=== PATIENT | male | born 1955 | race Caucasian/White ===

== ENCOUNTER → 2018-05-02 16:39 | Outpatient (CLI) | payer OTHER ==
[2013-08-12 13:16] VITALS: BMI 38.2
[~2018-05-02 16:39] MED LIST: ASPIRIN81 MG PO; BETAPACE 80 MG80 MG PO; COLACE100 MG PO; COUMADIN5 MG PO; COZAAR100 MG; LASIX20 MG PO; MICRO-K10 MEQ PO; MORPHINE IMMEDI15 MG PO; NEURONTIN 300300 MG PO; SYMBICORT 16010.2 GM; ZYRTEC10 MG
[2018-05-02 17:16] LABS: ANION GAP 12.6 mmol/L (8-16); CARBON DIOXIDE 31.5 mmol/L (21.0-32.0); CREATININE - SERUM 1.3 mg/dL (0.6-1.3); POTASSIUM - SERUM 4.1 mmol/L (3.5-5.1)
== END | disposition home or self-care (01) ==
LOC: D.LABREF 16:39
PROVIDERS: Nurse Practitioner
DX: I10 Essential (primary) hypertension (principal)

== ENCOUNTER 2018-07-28 12:51 | Observation (INO) | payer OTHER ==
[~2018-07-28] VITALS: Ht 177.8 cm; Wt 145.3 kg
--- NOTE | ~2018-07-28 | DS ---
PATIENT:MEHUL FRAIRE :55 MEDICAL RECORD: [id number] DISCHARGE SUMMARY ADMISSION DATE: 07/28/18 DISCHARGE DATE: 07/30/18 DATE OF ADMISSION: 07/28/2018. DATE OF DISCHARGE: 07/30/2018. DIAGNOSES: 1. Nonischemic cardiomyopathy. 2. Atrial fibrillation. 3. History of transient ischemic attack. BRIEF HISTORY AND HOSPITAL COURSE: Admitted with dyspnea, chest tightness, concerning for angina as well as positive enzymes, found to have a nonischemic cardiomyopathy on angiography. Started on a beta blockade as well as aldosterone inhibition, was discharged home to follow up in the office. We will need to repeat echo in 90 days to see if device therapy is indicated. TRANSINT:[id number] Voice Confirmation ID: [id number] DOCUMENT ID: [id number] LORY LEWIS MD CC: [id number] DICTATION DATE: 07/30/1842 SUPERVISOR GARMENT MANUFACTURING: 07/31/18 0019 DIS IN 07/30/18 [place] [id number] [place] [id number]
--- NOTE | ~2018-07-28 | CN ---
PATIENT NAME:MEHLU FRAIRE MEDICAL RECORD: [id number] : 55 LOCATION:D. D.2132 ADMIT DATE: 07/28/18 ACCOUNT: [id number] CONSULTING PHYSICIAN: LORY LEWIS MD REFERRING PHYSICIAN: LUZMA SMITH MD DATE OF CONSULTATION: 07/29/2018 HISTORY OF PRESENT ILLNESS: A 62-year-old gentleman with known history of coronary artery disease. He has a history of cerebrovascular disease status post TIA as well as paroxysmal atrial fibrillation, admitted with angina. He was actually working fairly heavily in his RV, had chest tightness and pressure radiating to jaw and teeth. Cardiac enzymes are elevated. ECG without acute change. We are asked to see him concerning his cardiovascular status. PAST MEDICAL HISTORY: Includes: 1. History of hypertension. 2. Hyperlipidemia. 3. Paroxysmal atrial fibrillation. 4. Cerebrovascular disease status post CVA. ALLERGIES: ERYTHROMYCIN. MEDICATIONS: Typically include warfarin per scale, Zyrtec 10 every day, Cozaar 100 every day, sotalol 40 b.i.d., Neurontin 300 b.i.d., Lyrica 150 b.i.d., Lasix 80 every day, potassium supplementation. SOCIAL HISTORY: Nonsmoker, nondrinker. Easily takes care of all his ADLs. No set exercise program. REVIEW OF SYSTEMS: The patient reports easy bruising but reports no swollen glands. The patient reports no fever, no night sweats, no significant weight gain, no significant weight loss. No significant exercise tolerance. The patient reports no dry eyes, no irritation, no vision change. Patient reports no difficulty hearing and no ear pain. Patient reports no frequent nose bleeds or nose and sinus problems. Patient reports on arm pain on exertion. No shortness of breath while lying down. No history of heart murmur. Patient reports no cough, no wheezing or coughing up blood. Patient reports no abdominal pain, no vomiting. Normal appetite. No diarrhea and not vomiting blood. No nausea and no constipation. Patient reports no incontinence. No difficulty urinating. No hematuria. No increased frequency. Patient reports no muscle aches. No weakness, no arthralgias, no back pain. No swelling of the extremities. Patient reports no abnormal mole, no jaundice, no rashes. Reports no loss of consciousness. No weakness and no numbness. No seizures, dizziness, or headaches. The patient reports no depression, no sleep disturbance, feeling safe in a relationship and no alcohol abuse. Patient reports on fatigue. Reports no runny nose or sinus pressure. No itching, no hives, and no frequent sneezing. PHYSICAL EXAMINATION: GENERAL: Pleasant gentleman in no acute distress, appears stated age. VITAL SIGNS: Blood pressure 150/75, pulse 58 and regular. HEENT: Normocephalic, atraumatic. NECK: No bruits noted. HEART: Regular, II/ systolic ejection murmur. LUNGS: Good air excursion. CONSULT REPORT [id number] MEHUL FRAIRE ABDOMEN: Soft, nontender. EXTREMITIES: Pulses 2+ with no edema. IMPRESSION: Acute coronary syndrome. PLAN: For diagnostic angiography, intervention based on the above. TRANSINT:[id number] Voice Confirmation ID: [id number] DOCUMENT ID: [id number] LORY LEWIS MD CC: [id number] DICTATION DATE: 07/29/18 1052 MEDICATION NURSE: 07/29/18 1213 ADM IN [place] [id number] [place] [address]
--- NOTE | ~2018-07-28 | HEMODYNAMI ---
PATIENT:MEHUL FRAIRE MEDICAL RECORD: [id number] : 55 [facility] D.2132 [id number] ADMISSION DATE: 07/28/18 Generatedon:07/30/20188:37 Patient name: MEHUL FRAIRE Patient #: [id number] SSN: : 1955 Date of study: 07/30/2018 Page: Of Hemodynamic Procedure Report Patient Data Patient Demographics Procedure consent was obtained First Name: MEHUL Gender: Male Last Name: JUNO : 1955 Patient #: [id number] Age: 62 year(s) Race: Unknown Additional ID: [id number] Contact details [address]: [address] [place] [address] State: [place] City: [place] Zip code: [address] Admission Admission Data Admission Date: 07/28/2018 Admission Time: 15:23 Admit Source: Other Room #: D.2132 Procedure Procedure Types Cath Procedure Diagnostic Procedure [facility] PCI Procedure Coronary Stent Coronary Stent Initial Procedure Description Procedure Date Procedure Date: 07/30/2018 Procedure Start Time: 8:20 Procedure End Time: 8:34 Procedure Staff Name Function Talon Schaefer MD Performing Physician Harvey Thompson RT Monitor Dianna Chinchilla RN Nurse Katlyn Brumfield RT Scrub Procedure Data Cath Procedure Fluoroscopy Diagnostic fluoroscopy Total fluoroscopy Time: 1.7 time: 1.7 min min Diagnostic fluoroscopy Total fluoroscopy dose: 434 dose: 434 mGy mGy Contrast Material Contrast Material Type Amount (ml) Isovue 300 50 Entry Location Entry Primary Successful Side Size Upsize Upsize Entry Closure Succes sful Closure Location (Fr) 1 (Fr) 2 (Fr) Remarks Device Remarks Femoral Right 5 Fr Exoseal artery Diagnostic catheters Device Type Used For End Catheter Placement MULTIPACK JL 4.0 5Fr Left Coronary catheter Angiography MULTIPACK 3DRC 5Fr Right Coronary catheter Angiography MULTIPACK Pigtail 5 Fr LV Angiography catheter Procedure Complications No complications Procedure Medications Medication Administration Route Dosage 0.9% NaCl I.V. 100 ml/hr Oxygen etCO2 Nasal cannula 2 l/min Lidocaine 2% added to field 20 Heparin Flush Bag added to field 2 bags (1000units/500ml NS) Versed I.V. 2 mg Fentanyl I.V. 50 mcg Versed I.V. 2 mg Fentanyl I.V. 50 mcg Fentanyl I.V. 50 mcg Ancef (1Gm/50ml NS) I.V.P.B 1 g Hemodynamics Rest Heart Rate: 68 (bpm) Pressure Samples Time Site Value (mmHg) Purpose Heart Use Rate(bpm) 8:31 LV 93/-7,-3 Snapshot 73 8:31 LV 162/20,25 Snapshot 71 8:32 LV 178/38,38 EDP 73 8:32 AO 167/96(120) Pullback 74 Gradients Valve Time Site Site 2 Mean SEP/DFP Peak To Heart Use 1 (mmHg) (sec/min) Peak Rate (mmHg) (bpm) Aortic 8:32 LV AO 10 17 74 167/96(120) Calculations Valve P-P Mean Valve Index Valve Source Name Gradient Area Flow (cm2) Aortic 10 10 Snapshots Pre Cath Intra NCS Post Cath Vital Signs Time Heart Resp SPO2 etCO2 NIBP (mmHg) Rhythm Pain Sedation Rate (ipm) (%) (mmHg) Status Level (bpm) 8:13:52 72 22 99 19.7 189/94(140) NSR 0 (11) 10(A) , No pain 8:18:19 65 12 98 41.6 159/89(133) NSR 0 (11) 10(A) , No pain 8:22:37 58 16 97 16.6 156/94(138) NSR 0 (11) 10(A) , No pain 8:26:59 64 18 99 42 175/95(135) NSR 0 (11) 10(A) , No pain 8:32:29 71 14 98 28.8 172/111(127) NSR 0 (11) 10(A) , No pain Medications Time Medication Route Dose Verified Delivered Reason Notes Effe ctiveness by by 8:00:31 Versed I.V. 2 mg Talon Dianna for [facility] Chinchilla sedation RN 8:08:12 0.9% NaCl I.V. 100 Talon Dianna used for ml/hr OliveJose Chinchilla procedure RN 8:08:18 Oxygen etCO2 2 Talon Dianna used for Nasal l/min [facility] procedure cannula MD WOLFF 8:08:24 Lidocaine 2% added 20ml Talon Hanley for local to vial [facility] anesthetic field MD COMBS 8:08:28 Heparin Flush added 2 Talon Talon used for Bag to bags [facility] procedure (1000units/500ml field MD COMBS NS) 8:20:41 Fentanyl I.V. 50 Talon Dianna for mcg [employer] [facility] sedation RN 8:25:50 Versed I.V. 2 mg Talon Dianna for [employer] Amor sedation RN 8:25:57 Fentanyl I.V. 50 Talon Dianna for mcg [place] Amor sedation RN 8:32:00 Fentanyl I.V. 50 Talon Dianna for mcg [place] Amor sedation MD WOLFF 8:36:17 Ancef (1Gm/50ml I.V.P.B 1 g Talon Dianna Per NS) [facility] Chinchilla physician street vendor Log Time Note 7:46:15 Admit Source: Other 7:46:41 Diagnostic Cath status Elective 7:46:44 Katlyn Brumfield RT(R) sent for patient. Start room use. 7:46:46 Time tracking: Regular hours (M-F 7:00 - 5:00) 7:46:58 Plan of Care:Hemodynamics will remain stable., Cardiac rhythm will remain stable., Comfort level will be maintained., Respiratory function will remain adequate., Patient/ family verbilizes understanding of procedure., Procedure tolerated without complication., Recovers from procedure without complications.. 8:00:10 Patient received from PCU to CCL 1 Alert and oriented. Tansferred to table in Supine position. 8:00:11 Warm blankets applied, and carina hugger turned on for patient comfort. 8:00:12 Correct patient and procedure confirmed by team. 8:00:14 Signed procedure consent form obtained from patient. 8:00:31 Versed 2 mg I.V. was administered by Dianna Chinchilla RN; for sedation; 8:08:02 Vital chart was started 8:08:12 0.9% NaCl 100 ml/hr I.V. was administered by Dianna Chinchilla RN; used for procedure; 8:08:18 Oxygen 2 l/min etCO2 Nasal cannula was administered by Dianna Chinchilla RN; used for procedure; 8:08:24 Lidocaine 2% 20ml vial added to field was administered by Talon Schaefer MD; for local anesthetic; 8:08:28 Heparin Flush Bag (1000units/500ml NS) 2 bags added to field was administered by Talon Schaefer MD; used for procedure; 8:18:41 ECG and BP/O2 sat monitors applied to patient. 8:18:42 Baseline sample Acquired. 8:18:45 Rhythm: sinus rhythm 8:18:46 Full Disclosure recording started 8:18:49 H&P Date Dictated: 07/30/2018 Within 30 days and on chart.. 8:18:49 Pre-procedure instructions explained to patient. 8:18:50 Pre-op teaching completed and patient verbalized understanding. 8:18:52 Family in patients room. 8:18:54 Patient NPO since Midnight. 8:19:01 Is the patient allergic to Iodine/contrast media? No. 8:19:04 Is patient on blood thinner?Yes 8:19:06 ACC The patient was administered the following blood thiners within the last 24 hours: ACCPlavix 8:19:10 Patient diabetic? No. 8:19:14 ----Pre-sedation anethsthesia assessment.---- 8:19:16 Previous problem with sedation/anesthesia? No ? 8:19:17 Snore? Yes 8:19:18 Sleep apnea? Yes 8:19:19 Deviated septum? No 8:19:20 Opens mouth fully? Yes 8:19:22 Sticks out tongue? Yes 8:19:26 Airway obstruction? Yes COPD 8:19:30 Dentures? No ? 8:19:33 Pre procedure: right dorsailis pedis pulse Doppler 8:19:36 Patient pain scale 0/10 ?. 8:19:40 IV patent on arrival in right antecubital with 0.9% NaCl at 10ml/hr. 8:19:44 Lab results completed and on chart. 8:19:48 Right groin area was prepped with chlora-prep and draped in sterile fashion 8:19:50 Alarms reviewed by R. N. 8:19:51 Sharps counted by scrub and verified by R.N. 8:19:52 Physician arrived 8:19:52 --------ALL STOP TIME OUT------ 8:19:53 Final Timeout: patient, procedure, and site verified with staff and physician. All members of the team are in agreement. 8:19:55 Right groin site verified by team. 8:19:59 Maximum allowable Isovue 300 dose 300ml. Physician notified. (300ml for normal creatinines. For patients with creatinine of 1.7 or higher multiply weight(kg) x 5 divided by creatinine.) 8:20:02 Fire Safety Assessment: A--An alcohol-based skin anteseptic being used preoperatively., C--Open oxygen or nitrous oxide is being used., D--An ESU, laser, or fiber-optic light is being used. 8:20:05 Physical assessment completed. ASA score P 2 - A patient with mild systemic disease as per Talon Schaefer MD. 8:20:09 Sedation plan: IV Moderate Sedation Medication:Versed, Fentanyl 8:20:12 Use device set Femoral Dx 8:20:13 ACIST Syringe (55943) opened to sterile field. 8:20:13 Bag Decanter (2002S) opened to sterile field. 8:20:14 Medline Cath Pack ([id number]) opened to sterile field. 8:20:15 DIAGNOSTIC WIRE .035 260cm J wire (243388) opened to sterile field. 8:20:16 ACIST Hand Control (33767) opened to sterile field. 8:20:17 ACIST Manifold (07132) opened to sterile field. 8:20:17 DIAGNOSTIC Multipack 5Fr catheter set (RM5945) opened to sterile field. 8:20:20 SHEATH 5FR [place] (GKP838) opened to sterile field. 8:20:24 Procedure started. 8:20:27 Local anesthetic to right femoral artery with Lidocaine 2% by Talon Schaefer MD.INITIAL ACCESS ONLY 8:20:35 A 5 Fr sheath was inserted into the Right Femoral artery 8:20:41 Fentanyl 50 mcg I.V. was administered by Dianna Chinchilla RN; for sedation; 8:21:49 Zero performed for pressure channel P1 8:25:50 Versed 2 mg I.V. was administered by Dianna Chinchilla RN; for sedation; 8:25:57 Fentanyl 50 mcg I.V. was administered by Dianna Chinchilla RN; for sedation; 8:27:40 A MULTIPACK JL 4.0 5Fr catheter was advanced over the wire and used for Left Coronary Angiography. 8:28:01 LCA angiography performed. 8:29:13 Catheter exchanged over wire. 8:29:21 A MULTIPACK 3DRC 5Fr catheter was advanced over the wire and used for Right Coronary Angiography. 8:29:26 RCA angiography performed. 8:30:05 Catheter exchanged over wire. 8:30:14 A MULTIPACK Pigtail 5 Fr catheter was advanced over the wire and used for LV Angiography. 8:32:00 Fentanyl 50 mcg I.V. was administered by Dianna Chinchilla RN; for sedation; 8:32:18 LV gram done using SHERMAN 8:32:25 EF : 30 % 8:32:32 Catheter removed. 8:32:38 EXOSEAL 5Fr (EX500) opened to sterile field. 8:32:49 Sheath removed intact; hemostasis achieved with Exoseal to the Right Femoral artery. 8:32:53 Contrast amount:Isovue 300 50ml. 8:32:55 Procedure ended.(Physican Out) 8:33:07 Fluoroscopy time 01.70 minutes. 8:33:13 Fluoroscopy dose: 434 mGy 8:33:13 Flurop Dose total: 434 8:33:14 Sharps counted by scrub and verified by R.N. 8:33:15 Insertion/operative site no bleeding no hematoma. 8:33:18 Post-op/insertion site Right Femoral artery dressed using a 4 x 4 and Tegaderm. 8:33:21 Post right femoral artery:stable 8:33:22 Post Procedure Pulses reassessed and unchanged 8:33:24 Post procedure: right dorsailis pedis pulse 1+ Palpable, but thready & weak; easily obliterated. 8:33:27 Post procedure rhythm: sinus rhythm 8:33:29 Post procedure instruction explained to patient.Patient verbalizes understanding. 8:33:30 Procedure and supply charges have been captured, reviewed, submitted and are correct. 8:33:58 Procedure Complication : No complications 8:34:00 Vital chart was stopped 8:34:01 See physician's report for complete and final results. 8:34:03 Report given to PCU. 8:34:06 Patient transfered to PCU with Bed. 8:34:08 Procedure ended. 8:34:08 Full Disclosure recording stopped 8:34:11 End room use (Document Last) 8:36:17 Ancef (1Gm/50ml NS) 1 g I.V.P.B was administered by Dianna Chinchilla RN; Per physician; Device Usage Item Name Manufacture Quantity Catalog Hospital Part Current Minimal L ot# / Number Charge Number Stock Stock Serial# Code ACIST Acist 1 [id number] [id number] 224722 282839 20 Syringe Medical (57588) Systems Inc Bag Microtek 1 2001S 685865 28545 369856 5 Decanter Medical Inc. () Medline Medline 1 [id number] 030267 61828 949010 5 Cath Pack ([id number]) DIAGNOSTIC St Roman 1 887351 242461 494710 786020 30 WIRE .035 260cm J wire (468423) ACIST Hand Acist 1 66101 690376 358336 535591 5 Control Medical (88509) Systems Inc ACIST Acist 1 22653 080192 000346 553833 5 Manifold Medical (68854) Systems Inc DIAGNOSTIC Cardinal 1 FZ9115 134134 37002 954131 30 Multipack Health 5Fr catheter set (YI4250) SHEATH 5FR Terumo 1 ULY111 234722 146462 863052 5 [place] (IIW711) MULTIPACK Cardinal 1 029230 5 JL 4.0 5Fr Health catheter MULTIPACK Cardinal 1 189433 5 3DRC 5Fr Health catheter MULTIPACK Cardinal 1 375305 5 Pigtail 5 Health Fr catheter EXOSEAL 5Fr Cardinal 1 EX500 965324 201381 447140 10 (EX500) Health Signature Audit [place] Stage Time Signature Unsigned Intra-Procedure 07/30/2018 Harvey Thompson RT(R) 8:37:09 AM Signatures Monitor : Harvey Thompson RT Signature : Date : Time : [facility] [address] [place] [address]
--- NOTE | ~2018-07-28 | OP ---
PATIENT NAME: MEHUL FRAIRE MEDICAL RECORD: [id number] :55 LOCATION:D.M2 D.2132 ADMISSION DATE:07/28/18 SURGEON: LORY LEWIS MD DATE OF OPERATION: 07/30/2018 PROCEDURE: Left heart catheterization, selective coronary angiography, right femoral artery approach. CATHETERS: A 5-Wolof sheath, 5/4 left and right Dana, 5/4 pig. The procedure was well tolerated. The patient was returned to long, sheath removed. ExoSeal device placed. FINDINGS: Left ventriculography in 30-degree SHERMAN view shows global hypokinesis, reduced EF, estimated EF 30% to 35%. CORONARY ANATOMY: LEFT MAIN: Left main is free of disease. LAD: Free of disease in the diagonal system. CIRCUMFLEX: Free of disease in the marginal system. RIGHT CORONARY ARTERY: Somewhat codominant system, free of disease. IMPRESSION: Nonischemic cardiomyopathy. We will add carvedilol, Aldactone to his underlying ARB. The thing on symptomology could consider challenging with Entresto down the road. TRANSINT:[id number] Voice Confirmation ID: [id number] DOCUMENT ID: [id number] LORY LEWIS MD CC: [id number] DICTATION DATE: 07/30/18 0841 TESTING SPECIALIST: 07/30/18 1141 ADM IN [facility] [address] [place] [address]
[~2018-07-28 12:51] MED LIST changes: -COZAAR100 MG; +COZAAR100 MG PO; -ZYRTEC10 MG; +ZYRTEC10 MG PO
[2018-07-28] MEDS ORDERED: BREO ELLIPTA 11 EACH INH (13:03)
[2018-07-28] MEDS ORDERED: LASIX80 MG PO (13:03)
[2018-07-28] MEDS ORDERED: OMEPRAZOLE40 MG PO (13:04)
[2018-07-28] MEDS ORDERED: LYRICA150 MG PO (13:04)
[2018-07-28] MEDS ORDERED: KLOR-CON M2020 MEQ PO (13:05)
[2018-07-28 13:23] LABS: APPEARANCE CLEAR (CLEAR); COLOR YELLOW (YELLOW)
[2018-07-28 13:24] LABS: BILIRUBIN NEGATIVE (NEGATIVE); GLUCOSE 1000 mg/dL (NEGATIVE); KETONE NEGATIVE (NEGATIVE); NITRITE NEGATIVE (NEGATIVE); PROTEIN NEGATIVE (NEGATIVE)
[2018-07-28 13:36] LABS: BASOPHILS 0.5 % (0-2); EOSINOPHILS 2.2 % (0-7); HEMATOCRIT 44.6 % (42.0-54.0); HEMOGLOBIN 15.1 g/dL (13.5-17.5); IMMATURE GRANULOCYTES 0.3 % (0-5); LYMPHOCYTES 24.4 % (15-50); MCH 28.9 pg (26.0-34.0); MCHC 33.9 g/dL (31.0-37.0); MCV 85.4 fL (80.0-100.0); MONOCYTES 9.7 % (2-11); NEUTROPHILS 62.9 % (40-80); PLATELET COUNT 199 10x3/uL (130-400); RBC 5.22 10x6/uL (4.20-6.10); RDW 15.9 % (11.5-14.5); WBC 7.4 10x3/uL (4.8-10.8)
[2018-07-28 14:00] LABS: ALBUMIN 3.6 g/dL (3.4-5.0); ALKALINE PHOSPHATASE 168 U/L (46-116); ALT (SGPT) 82 U/L (10-68); BILIRUBIN - TOTAL 0.57 mg/dL (0.2-1.3); CALC OSMOLALITY 284 mosm/kg (275-300); CALCIUM 8.5 mg/dL (8.5-10.1); CARBON DIOXIDE 34.7 mmol/L (21.0-32.0); CHLORIDE - SERUM 101 mmol/L (98-107); CREATININE - SERUM 1.2 mg/dL (0.6-1.3); POTASSIUM - SERUM 3.1 mmol/L (3.5-5.1); PROTEIN - SERUM 7.2 g/dL (6.4-8.2); SODIUM 139 mmol/L (136-145); UREA NITROGEN 10 mg/dL (7-18); eGFR NON AFRICAN AMERICAN 65 mL/min (90-120)
[2018-07-28 14:04] LABS: GLUCOSE 245 mg/dL (74-106)
[2018-07-28 14:14] LABS: CREATINE KINASE 246 UL (21-232); MAGNESIUM - SERUM 1.8 mg/dL (1.8-2.4)
--- NOTE | 2018-07-28 14:34 | NUR ---
ELEVATED TROPONIN OF 0.8 CALLED BY WEB USER EXPERIENCE STRATEGIST AT THIS TIME, NOTIFIED EDP OF CRITICAL LAB
[2018-07-28 15:44] VITALS: BP 142/80
--- NOTE | 2018-07-28 16:30 | NUR ---
NEW PATIENT ADMIT FROM ER WITH CHIEF COMPLAINT OF CHEST PAIN. PATIENT ACCOMPANIED BY SPOUSE. PATIENT IS AWAKE, ALERT AND ORIENTED X 4. 20 G IV TO RT AC SL. PATIENT DENIES ANY NEEDS OR PAIN. TELEMETRY PLACED. ORIENTED TO ROOM AND CALL LIGHT. WILL CONTINUE WITH PLAN OF CARE. BED IN LOW POSITION SR UP X 2 AND BED IN LOW POSTION.
[2018-07-28 19:24] VITALS: Ht 177.8 cm; Wt 145.3 kg
[2018-07-28 20:00] VITALS: BP 137/90
--- NOTE | 2018-07-28 23:24 | NUR ---
INITIAL ROUNDS COMPLETED AT 191 HRS,. PT DENIED ANY DISCOMFORT. ASSESSMENT COMPLETED AT 2024 HRS. VSS. SR PER CM HR 76. PT ALERT AND ORIENTED TO PERSON, PLACE AND TIME. MEZA. IV TO LAC WITH NS AT 15CC/HR. IV PATENT. STATES BILAT FEET WITH TINGLING SENSATION. STATES HAS NEUROPATHY. 2ND FINGER OF R HAND MISSING. AT BEDSIDE. PT CURRENTLY RESTING WITH EYES CLOSED. RESP EVEN AND REGULAR. SR UP X2,CALL LIGHT WITHIN REACH.
[2018-07-29] VITALS (7 sets, daily range): BP systolic 142–163; BP diastolic 75–89
--- NOTE | 2018-07-29 00:24 | NUR ---
PT AWAKE; DENIES ANY DISCOMFORT. AT BEDSIDE AND CALL LIGHT WITHIN REACH.
--- NOTE | 2018-07-29 02:52 | NUR ---
PT RESTING WITH EYES CLOSED. RESP EVEN AND REGULAR. SR UP X2, CALL LIGHT WITHIN REACH AND SPOUSE AT BEDSIDE.
--- NOTE | 2018-07-29 04:53 | NUR ---
PT RSETING WITH EYES CLOSED. RESP EVEN AND REGULAR. SR UP X2, CALL LIGHT WITHIN REACH.
--- NOTE | 2018-07-29 05:55 | NUR ---
VSS THORUGHOUT NIGHT. SR PER CM. PT DENIED ANY DISCOMFORT. NEEDS MET; WILL CONTINUE TO MONITOR.
[2018-07-29 09:29] LABS: CALCIUM 8.3 mg/dL (8.5-10.1); CARBON DIOXIDE 32.6 mmol/L (21.0-32.0); CHLORIDE - SERUM 102 mmol/L (98-107); SODIUM 140 mmol/L (136-145); UREA NITROGEN 9 mg/dL (7-18); eGFR NON AFRICAN AMERICAN 80 mL/min (90-120)
[2018-07-29 09:31] LABS: CALC OSMOLALITY 279 mosm/kg (275-300); GLUCOSE 126 mg/dL (74-106)
[2018-07-29 09:33] LABS: POTASSIUM - SERUM 2.7 mmol/L (3.5-5.1)
--- NOTE | 2018-07-29 09:47 | NUR ---
NOTIFIED YULIA/RN BOARD LAYER WITH DR. LEWIS THAT PT POTASSIUM LEVEL WAS 2.7. NO NEW ORDERS RECEIVED AT THIS TIME.
[2018-07-29 09:56] LABS: BASOPHILS 0.3 % (0-2); EOSINOPHILS 2.6 % (0-7); HEMOGLOBIN 15.5 g/dL (13.5-17.5); IMMATURE GRANULOCYTES 0.2 % (0-5); LYMPHOCYTES 32.2 % (15-50); MCH 28.9 pg (26.0-34.0); MCHC 33.7 g/dL (31.0-37.0); MCV 85.8 fL (80.0-100.0); MEAN PLATELET VOLUME 11.6 fL (7.4-10.4); MONOCYTES 9.4 % (2-11); NEUTROPHILS 55.3 % (40-80); PLATELET COUNT 194 10x3/uL (130-400); RBC 5.36 10x6/uL (4.20-6.10); RDW 15.9 % (11.5-14.5); WBC 5.8 10x3/uL (4.8-10.8)
[2018-07-29 10:53] LABS: INR 3.57 (0.85-1.17); PROTIME 34.8 SECONDS (11.6-15.0)
--- NOTE | 2018-07-29 15:39 | NUR ---
RATIONALE FOR SCD'S EXPLAINED. REFUSED SCD'S
[2018-07-30 00:25] VITALS: BP 145/90
[2018-07-30 04:25] VITALS: BP 139/76
[2018-07-30 05:22] LABS: BASOPHILS 0.6 % (0-2); EOSINOPHILS 2.6 % (0-7); HEMATOCRIT 42.1 % (42.0-54.0); HEMOGLOBIN 14.3 g/dL (13.5-17.5); IMMATURE GRANULOCYTES 0.2 % (0-5); LYMPHOCYTES 31.2 % (15-50); MCH 28.9 pg (26.0-34.0); MCV 85.2 fL (80.0-100.0); MONOCYTES 11.2 % (2-11); NEUTROPHILS 54.2 % (40-80); PLATELET COUNT 190 10x3/uL (130-400); RBC 4.94 10x6/uL (4.20-6.10); WBC 6.4 10x3/uL (4.8-10.8)
[2018-07-30 06:15] LABS: INR 2.19 (0.85-1.17); PROTIME 23.6 SECONDS (11.6-15.0)
[2018-07-30 06:34] LABS: CALCIUM 8.3 mg/dL (8.5-10.1); CARBON DIOXIDE 29.1 mmol/L (21.0-32.0); CHLORIDE - SERUM 104 mmol/L (98-107); GLUCOSE 129 mg/dL (74-106); SODIUM 140 mmol/L (136-145); eGFR NON AFRICAN AMERICAN 80 mL/min (90-120)
[2018-07-30 06:38] LABS: CALC OSMOLALITY 280 mosm/kg (275-300); POTASSIUM - SERUM 3.3 mmol/L (3.5-5.1); UREA NITROGEN 13 mg/dL (7-18)
[2018-07-30] MEDS ORDERED: PLAVIX75 MG PO (09:49)
[2018-07-30] MEDS ORDERED: PROTONIX40 MG PO (09:50)
--- NOTE | 2018-07-30 10:59 | MORECARE ---
CASE MANAGEMENT DISCHARGE SUMMARY PATIENT: MEHUL FRAIRE UNIT: [id number] ADM DATE: 07/28/18 AGE: 62 : 55 SEX: M ROOM/BED: D.2132 AUTHOR: ASHLI FIELD PHYSICIAN: REFERRING PHYSICIAN: LUZMA SMITH MD DATE OF SERVICE: 07/30/18 Discharge Plan Patient Name: MEHUL FRAIRE Facility: [facility]:[place] : 1955 Planned Disposition: Home Anticipated Discharge Date: 07/30/18 Discharge Date: Expected LOS: 2 Initial Reviewer: [email or web address] Initial Review Date: 07/30/2018 Generated: 07/30/18 11:59 am Patient Name: MEHUL FRAIRE Page 18885 at 1059 All edits/amendments must be made on the electronic document DICTATION DATE: 07/30/18 1058 CLOTH COLORER: PETER 07/30/18 1058 RPT#: [id number] DC DATE: STATUS: ADM IN [facility] [address] [place] [address] END OF REPORT
[2018-07-30] MEDS ORDERED: ALDACTONE25 MG PO (13:04)
[2018-07-30] MEDS ORDERED: COREG6.25 MG PO (13:06)
== END 2018-07-30 14:45 | disposition home or self-care (01) ==
LOC: D.ER 12:51 → OBSVTIME 15:23 → D.M2 15:23 → D.EDHOLD 15:23 → D.M2 15:41
PROVIDERS: Family Medicine; Internal Medicine Interventional Cardiology; ADMIT Internal Medicine Nephrology; ATTEND Internal Medicine Nephrology
DX: I42.9 Cardiomyopathy, unspecified (principal); Z86.73 Personal history of transient ischemic attack (TIA), and cerebral infarction without residual deficits; E87.6 Hypokalemia; I10 Essential (primary) hypertension; E78.5 Hyperlipidemia, unspecified; J44.9 Chronic obstructive pulmonary disease, unspecified; G47.33 Obstructive sleep apnea (adult) (pediatric); Z79.01 Long term (current) use of anticoagulants; M54.9 Dorsalgia, unspecified; G89.29 Other chronic pain

== ENCOUNTER 2018-08-09 17:40 | Inpatient (IN) | payer OTHER ==
[~2018-08-09] VITALS: Ht 177.8 cm; Wt 144.0 kg
[~2018-08-09 17:40] MED LIST changes: +ALDACTONE25 MG PO; +BREO ELLIPTA 11 EACH INH; +COREG6.25 MG PO; +KLOR-CON M2020 MEQ PO; +LASIX80 MG PO; +LYRICA150 MG PO; +OMEPRAZOLE40 MG PO; +PLAVIX75 MG PO; +PROTONIX40 MG PO
[2018-08-09 18:05] VITALS: BP 92/62
[2018-08-09 18:17] VITALS: BP 116/72
[2018-08-09 18:30] VITALS: BP 116/72
--- NOTE | 2018-08-09 18:31 | NUR ---
LAB AT FOR LAB DRAW
[2018-08-09 18:50] LABS: BASOPHILS 0.3 % (0-2); EOSINOPHILS 0.6 % (0-7); HEMATOCRIT 47.3 % (42.0-54.0); HEMOGLOBIN 16.7 g/dL (13.5-17.5); IMMATURE GRANULOCYTES 0.2 % (0-5); LYMPHOCYTES 20.7 % (15-50); MCH 29.3 pg (26.0-34.0); MCHC 35.3 g/dL (31.0-37.0); MCV 83.1 fL (80.0-100.0); MONOCYTES 7.5 % (2-11); NEUTROPHILS 70.7 % (40-80); PLATELET COUNT 222 10x3/uL (130-400); RBC 5.69 10x6/uL (4.20-6.10); RDW 15.2 % (11.5-14.5); WBC 9.3 10x3/uL (4.8-10.8)
[2018-08-09 18:55] VITALS: BP 118/84
[2018-08-09 19:10] LABS: APTT 50.2 SECONDS (22.8-39.4); INR 2.22 (0.85-1.17); PROTIME 23.9 SECONDS (11.6-15.0)
--- NOTE | 2018-08-09 19:14 | NUR ---
BS REPORT TO MARIELLA MONTERO
[2018-08-09 19:16] LABS: ALBUMIN 3.9 g/dL (3.4-5.0); ALKALINE PHOSPHATASE 121 U/L (46-116); ALT (SGPT) 81 U/L (10-68); BILIRUBIN - TOTAL 0.91 mg/dL (0.2-1.3); CALC OSMOLALITY 280 mosm/kg (275-300); CALCIUM 9.8 mg/dL (8.5-10.1); CARBON DIOXIDE 28.8 mmol/L (21.0-32.0); CHLORIDE - SERUM 99 mmol/L (98-107); CREATININE - SERUM 1.3 mg/dL (0.6-1.3); POTASSIUM - SERUM 3.1 mmol/L (3.5-5.1); PROTEIN - SERUM 7.9 g/dL (6.4-8.2); SODIUM 136 mmol/L (136-145); UREA NITROGEN 17 mg/dL (7-18); eGFR NON AFRICAN AMERICAN 59 mL/min (90-120)
[2018-08-09 19:17] LABS: GLUCOSE 231 mg/dL (74-106)
[2018-08-09 19:25] VITALS: BP 120/79
[2018-08-09 19:26] LABS: CREATINE KINASE 254 UL (21-232); MAGNESIUM - SERUM 2.1 mg/dL (1.8-2.4)
[2018-08-09 19:37] LABS: TROPONIN-I < 0.017 ng/mL (0.000-0.060)
--- NOTE | 2018-08-09 20:42 | NUR ---
PT GIVEN URINAL AND WATER TO DRINK.
[2018-08-09] MEDS ORDERED: PLAVIX75 MG PO (22:14)
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
[2018-08-09 23:56] VITALS: BP 119/66
[2018-08-10 01:06] VITALS: BP 132/83; BMI 42.8
[2018-08-10 01:56] LABS: BASOPHILS 0.5 % (0-2); EOSINOPHILS 1.6 % (0-7); HEMATOCRIT 46.6 % (42.0-54.0); HEMOGLOBIN 15.9 g/dL (13.5-17.5); IMMATURE GRANULOCYTES 0.4 % (0-5); LYMPHOCYTES 26.9 % (15-50); MCH 28.5 pg (26.0-34.0); MCHC 34.1 g/dL (31.0-37.0); MCV 83.5 fL (80.0-100.0); MEAN PLATELET VOLUME 11.2 fL (7.4-10.4); MONOCYTES 11.7 % (2-11); NEUTROPHILS 58.9 % (40-80); PLATELET COUNT 213 10x3/uL (130-400); RBC 5.58 10x6/uL (4.20-6.10); RDW 15.4 % (11.5-14.5)
[2018-08-10 02:25] LABS: ALBUMIN 3.3 g/dL (3.4-5.0); ALKALINE PHOSPHATASE 97 U/L (46-116); ALT (SGPT) 69 U/L (10-68); BILIRUBIN - TOTAL 0.75 mg/dL (0.2-1.3); CALC OSMOLALITY 277 mosm/kg (275-300); CALCIUM 8.7 mg/dL (8.5-10.1); CARBON DIOXIDE 27.6 mmol/L (21.0-32.0); CHLORIDE - SERUM 101 mmol/L (98-107); CKMB 2.5 U/L (0.0-3.6); CREATINE KINASE 187 UL (21-232); POTASSIUM - SERUM 3.1 mmol/L (3.5-5.1); PROTEIN - SERUM 7.1 g/dL (6.4-8.2); SODIUM 137 mmol/L (136-145); TROPONIN-I 0.022 ng/mL (0.000-0.060); UREA NITROGEN 15 mg/dL (7-18); eGFR NON AFRICAN AMERICAN 80 mL/min (90-120)
[2018-08-10 02:27] LABS: GLUCOSE 149 mg/dL (74-106)
[2018-08-10 04:25] VITALS: BP 114/74
--- NOTE | 2018-08-10 06:42 | NUR ---
ONE TIME DOSE OF KDUR GIVEN ORDERED. PT DENIES ANY NEEDS. CARDIZEM INFUSING ORDERED. PT WILL CALL FOR ASSIST NEEDED. WILL CPOC
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
[2018-08-10 07:49] VITALS: BP 112/75
[2018-08-10 08:45] LABS: CKMB 2.4 U/L (0.0-3.6); CREATINE KINASE 161 UL (21-232); TROPONIN-I 0.028 ng/mL (0.000-0.060)
[2018-08-10 09:57] VITALS: Ht 177.8 cm; Wt 144.0 kg
[2018-08-10 12:16] VITALS: BP 119/72
--- NOTE | 2018-08-10 12:46 | NUR ---
IV DCD. SL PATENT
--- NOTE | 2018-08-10 14:04 | NUR ---
I have reviewed this patient and I concur with the Shift Assessment completed by the Licensed Practical Nurse today this shift.
--- NOTE | 2018-08-10 14:23 | NUR ---
PT DISCHARGED. IV DCD WITH TIP INTACT. INSTRUCTIONS GIVEN TO PT AND . TO PTIVATE CAR PER WHEELCHAIR.
--- NOTE | 2018-08-11 09:13 | CN ---
PATIENT NAME:MEHUL FRAIRE MEDICAL RECORD: [id number] : 55 LOCATION:D. D.2121 ADMIT DATE: 08/09/18 ACCOUNT: [id number] CONSULTING PHYSICIAN: LORY LEWIS MD REFERRING PHYSICIAN: OSBALDO GOLDBERG DO DATE OF CONSULTATION: 08/10/2018 HISTORY OF PRESENT ILLNESS: A 62-year-old gentleman who I saw recently with symptoms consistent with unstable angina, underwent diagnostic angiography showed no fixed obstructive coronary artery disease. Has a mild myopathy, had recurrent symptomatology, presented to the ER, was found to be in atrial fibrillation with RVR, feeling better with the controlled rates. The patient already on Coumadin for cerebrovascular accident prophylaxis. We are asked to see him concerning his cardiovascular status. PAST MEDICAL HISTORY: Includes; 1. History of cardiomyopathy as described above. 2. Hypertension. 3. Atrial fibrillation. 4. Cerebrovascular disease status post cerebrovascular accident. 5. Gastroesophageal reflux disease. ALLERGIES: MORPHINE, HYDROCODONE, ERYTHROMYCIN. MEDICATIONS: Include warfarin per scale, Plavix 75 every day, sotalol 40 b.i.d., losartan 100 every day, Aldactone 25 every day, carvedilol 6.25 b.i.d., Lyrica 150 b.i.d., Lasix 80 every day. SOCIAL HISTORY: , nonsmoker. Easily takes care of all his ADLs. Good family support. REVIEW OF SYSTEMS: The patient reports easy bruising but reports no swollen glands. The patient reports no fever, no night sweats, no significant weight gain, no significant weight loss. No significant exercise tolerance. The patient reports no dry eyes, no irritation, no vision change. Patient reports no difficulty hearing and no ear pain. Patient reports no frequent nose bleeds or nose and sinus problems. Patient reports on arm pain on exertion. No shortness of breath while lying down. No history of heart murmur. Patient reports no cough, no wheezing or coughing up blood. Patient reports no abdominal pain, no vomiting. Normal appetite. No diarrhea and not vomiting blood. No nausea and no constipation. Patient reports no incontinence. No difficulty urinating. No hematuria. No increased frequency. Patient reports no muscle aches. No weakness, no arthralgias, no back pain. No swelling of the extremities. Patient reports no abnormal mole, no jaundice, no rashes. Reports no loss of consciousness. No weakness and no numbness. No seizures, dizziness, or headaches. The patient reports no depression, no sleep disturbance, feeling safe in a relationship and no alcohol abuse. Patient reports on fatigue. Reports no runny nose or sinus pressure. No itching, no hives, and no frequent sneezing. PHYSICAL EXAMINATION: GENERAL: Pleasant gentleman in no acute distress, appears stated age. VITAL SIGNS: Pulse 72 and irregular, blood pressure 112/75. HEENT: Normocephalic, atraumatic. NECK: No bruits are noted. CONSULT REPORT [id number] MEHUL FRAIRE HEART: Irregular, rate is controlled, II/ systolic ejection murmur. LUNGS: Good air excursion. ABDOMEN: Soft, nontender. EXTREMITIES: Pulses 2+. There is no edema. DIAGNOSTIC DATA: ECG shows atrial fibrillation with controlled rate at this point. IMPRESSION: Paroxysmal atrial fibrillation. No evidence of coronary artery disease, rates are controlled, diltiazem, we would increase baseline Betapace to 80 b.i.d. No contraindication at discharge, we will see back in the office to assess the patient as discussed above next week. TRANSINT:[id number] Voice Confirmation ID: [id number] DOCUMENT ID: [id number] LORY LEWIS MD at 0913 CC: [id number] DICTATION DATE: 08/10/18928 RETAIL SALES ADVISOR: 08/10/18 1140 DIS IN 08/10/18 [id number] [place] [address]
--- NOTE | 2018-08-12 09:32 | MORECARE ---
CASE MANAGEMENT DISCHARGE SUMMARY PATIENT: MEHUL FRAIRE UNIT: [id number] ADM DATE: 08/09/18 AGE: 62 : 55 SEX: M ROOM/BED: D.2121 AUTHOR: ASHLI FIELD PHYSICIAN: REFERRING PHYSICIAN: OSBALDO GOLDBERG DO DATE OF SERVICE: 08/12/18 Discharge Plan Patient Name: MEHUL FRAIRE Facility: [facility]:[place] : 1955 Planned Disposition: Home Anticipated Discharge Date: 08/10/18 Discharge Date: 08/10/2018 Expected LOS: 1 Initial Reviewer: [email or web address] Initial Review Date: 08/12/2018 Generated: 08/12/18 10:31 am Patient Name: MEHUL FRAIRE Page 43207 at 0932 All edits/amendments must be made on the electronic document DICTATION DATE: 08/12/18930 PLASTIC MOLDER: PETER 08/12/18930 RPT#: [id number] DC DATE:08/10/18 STATUS: DIS IN [facility] [address] [place] [address] END OF REPORT
== END 2018-08-10 14:26 | disposition home or self-care (01) | DRG 310 ==
LOC: D.ER 17:40 → D.M2 20:40 → D.EDHOLD 20:40 → D.M2 21:22 → D.EDHOLD 21:22 → D.M2 08-10 14:26
PROVIDERS: Family Medicine; ADMIT Family Medicine; ATTEND Family Medicine
DX: I48.0 Paroxysmal atrial fibrillation (principal); Z79.01 Long term (current) use of anticoagulants; G62.9 Polyneuropathy, unspecified; I11.0 Hypertensive heart disease with heart failure; I50.9 Heart failure, unspecified; J44.9 Chronic obstructive pulmonary disease, unspecified; E78.5 Hyperlipidemia, unspecified; Z86.73 Personal history of transient ischemic attack (TIA), and cerebral infarction without residual deficits

== ENCOUNTER → 2018-12-13 10:34 | Outpatient (CLI) | payer OTHER ==
[2018-08-10 09:57] VITALS: BMI 45.5
[~2018-12-13 10:34] MED LIST changes: +MEDROL DOSE PACK4 MG PO
== END | disposition home or self-care (01) ==
LOC: D.HCCARDIO 10:30
PROVIDERS: ATTEND Internal Medicine Cardiovascular Disease
DX: I42.9 Cardiomyopathy, unspecified (principal)

== ENCOUNTER 2018-12-29 19:44 | Emergency (ER) | payer OTHER ==
[~2018-12-29] VITALS: Ht 177.8 cm; Wt 140.0 kg
[~2018-12-29 19:44] MED LIST changes: -MEDROL DOSE PACK4 MG PO
[2018-12-29 19:48] VITALS: Ht 177.8 cm; Wt 140.0 kg
[2018-12-29 20:20] LABS: BASOPHILS 0.6 % (0-2); EOSINOPHILS 2.3 % (0-7); HEMATOCRIT 43.9 % (42.0-54.0); HEMOGLOBIN 15.3 g/dL (13.5-17.5); IMMATURE GRANULOCYTES 0.3 % (0-5); LYMPHOCYTES 21.7 % (15-50); MCH 29.7 pg (26.0-34.0); MCHC 34.9 g/dL (31.0-37.0); MCV 85.1 fL (80.0-100.0); MEAN PLATELET VOLUME 10.5 fL (7.4-10.4); MONOCYTES 9.6 % (2-11); NEUTROPHILS 65.5 % (40-80); PLATELET COUNT 193 10x3/uL (130-400); RBC 5.16 10x6/uL (4.20-6.10); RDW 15.4 % (11.5-14.5); WBC 7.9 10x3/uL (4.8-10.8)
[2018-12-29 20:24] LABS: INR 2.41 (0.85-1.17); PROTIME 25.5 SECONDS (11.6-15.0)
[2018-12-29 20:30] LABS: ALBUMIN 3.7 g/dL (3.4-5.0); ALKALINE PHOSPHATASE 100 U/L (46-116); ALT (SGPT) 37 U/L (10-68); BILIRUBIN - TOTAL 0.53 mg/dL (0.2-1.3); CALC OSMOLALITY 269 mosm/kg (275-300); CHLORIDE - SERUM 101 mmol/L (98-107); CREATININE - SERUM 1.1 mg/dL (0.6-1.3); GLUCOSE 102 mg/dL (74-106); POTASSIUM - SERUM 3.3 mmol/L (3.5-5.1); PROTEIN - SERUM 7.7 g/dL (6.4-8.2); SODIUM 135 mmol/L (136-145); UREA NITROGEN 12 mg/dL (7-18); eGFR NON AFRICAN AMERICAN 72 mL/min (90-120)
[2018-12-29 20:33] LABS: APTT 55.6 SECONDS (22.8-39.4)
[2018-12-29 20:42] LABS: CKMB 3.3 U/L (0.0-3.6); CREATINE KINASE 173 UL (21-232); MAGNESIUM - SERUM 1.9 mg/dL (1.8-2.4); THYROID STIMULATING HORMONE 1.15 uIU/mL (0.36-3.74)
[2018-12-29 20:43] LABS: TROPONIN-I < 0.017 ng/mL (0.000-0.060)
[2018-12-29] MEDS ORDERED: MEDROL DOSE PACK4 MG PO (21:31)
[2018-12-29 22:00] VITALS: BP 118/63
== END 2018-12-29 22:00 | disposition home or self-care (01) ==
LOC: D.ER 19:44
PROVIDERS: Family Medicine
DX: G51.0 Bell's palsy (principal); G43.909 Migraine, unspecified, not intractable, without status migrainosus

== ENCOUNTER 2019-07-31 13:30 | Inpatient (IN) | payer OTHER ==
[~2019-07-31] VITALS: Ht 177.8 cm; Wt 126.6 kg
[~2019-07-31 13:30] MED LIST changes: -COUMADIN5 MG PO; +MEDROL DOSE PACK4 MG PO
[2019-07-31 13:50] VITALS: BP 138/67
[2019-07-31 14:42] LABS: BASOPHILS 0.2 % (0-2); EOSINOPHILS 0.8 % (0-7); HEMATOCRIT 45.2 % (42.0-54.0); HEMOGLOBIN 14.5 g/dL (13.5-17.5); IMMATURE GRANULOCYTES 0.2 % (0-5); LYMPHOCYTES 11.8 % (15-50); MCH 28.3 pg (26.0-34.0); MCHC 32.1 g/dL (31.0-37.0); MCV 88.1 fL (80.0-100.0); MONOCYTES 7.8 % (2-11); NEUTROPHILS 79.2 % (40-80); RBC 5.13 10x6/uL (4.20-6.10); RDW 14.8 % (11.5-14.5); WBC 9.2 10x3/uL (4.8-10.8)
[2019-07-31 14:48] LABS: PLATELET COUNT 238 10x3/uL (130-400)
[2019-07-31 14:52] LABS: ANION GAP 12.4 mmol/L (8-16); CALCIUM 9.7 mg/dL (8.5-10.1); CARBON DIOXIDE 30.1 mmol/L (21.0-32.0); CREATININE - SERUM 1.1 mg/dL (0.6-1.3); POTASSIUM - SERUM 3.5 mmol/L (3.5-5.1)
[2019-07-31 14:54] LABS: INR 2.03 (0.85-1.17); PROTIME 22.7 SECONDS (11.6-15.0)
[2019-07-31 14:58] LABS: ALBUMIN 4.2 g/dL (3.4-5.0); BILIRUBIN - TOTAL 0.67 mg/dL (0.2-1.3)
[2019-07-31] MEDS ORDERED: COUMADIN10 MG PO (15:01)
[2019-07-31] MEDS ORDERED: GLUCOPHAGE1000 MG PO (15:05)
[2019-07-31] MEDS ORDERED: GLUCOTROL 5 MG T5 MG PO (15:05)
[2019-07-31] MEDS ORDERED: LIPITOR40 MG PO (15:05)
[2019-07-31] MEDS ORDERED: DILAUDID2 MG PO (15:59)
[2019-07-31 17:36] VITALS: BP 126/63; BMI 40.1
[2019-07-31 17:39] VITALS: BP 126/63
--- NOTE | 2019-07-31 18:07 | MORECARE ---
CASE MANAGEMENT DISCHARGE SUMMARY PATIENT: MEHUL FRAIRE SR UNIT: [id number] ADM DATE: 07/31/19 AGE: 63 : 55 SEX: M ROOM/BED: D.2231 AUTHOR: ASHLI FIELD PHYSICIAN: REFERRING PHYSICIAN: LUZMA SMITH MD DATE OF SERVICE: 07/31/19 Discharge Plan Patient Name: MEHUL FRAIRE Facility: [facility]:[place] : 1955 Planned Disposition: Home Anticipated Discharge Date: Discharge Date: Expected LOS: Initial Reviewer: [email or web address] Initial Review Date: 07/31/2019 Generated: 07/31/19 7:07 pm DCPIA - Discharge Planning Initial Assessment Updated by [email or web address]: Domenica Carlos on 07/31/19 6:05 pm * Is the patient Alert and Oriented? Yes * How many steps to enter\exit or inside your home? * PCP JUDIE LOPEZ * [facility] * Preadmission Environment Home with Family * ADLs Independent * Other Equipment ? WALKER, ? CRUTCHES, BSC * List name and contact numbers for known caregivers / representatives who currently or will assist patient after discharge: ISI FRAIRE - [facility] - [phone] * Verbal permission to speak to the caregivers and representatives has been obtained from the patient. Yes * Community resources currently utilized None * Additional services required to return to the preadmission environment? No * Can the patient safely return to the preadmission environment? Yes * Has this patient been hospitalized within the prior 30 days at any hospital? No Patient Name: MEHUL FRAIRE Page 37469 at 1807 All edits/amendments must be made on the electronic document DICTATION DATE: 07/31/191806 HOT SAW HELPER: PETER 07/31/191806 RPT#: [id number] DC DATE: STATUS: ADM IN [facility] [address] [place] [address] END OF REPORT
--- NOTE | 2019-07-31 18:15 | MORECARE ---
CASE MANAGEMENT DISCHARGE SUMMARY PATIENT: MEHUL FRAIRE SR UNIT: [id number] ADM DATE: 07/31/19 AGE: 63 : 55 SEX: M ROOM/BED: D.2231 AUTHOR: RASHIDADOC PHYSICIAN: REFERRING PHYSICIAN: LUZMA SMITH MD DATE OF SERVICE: 07/31/19 Discharge Plan Patient Name: MEHUL FRAIRE Facility: [facility]:[place] : 1955 Planned Disposition: Home Anticipated Discharge Date: Discharge Date: Expected LOS: Initial Reviewer: [email or web address] Initial Review Date: 07/31/2019 Generated: 07/31/19 7:15 pm Comments DCP- Discharge Planning Updated by [email or web address]: Domenica Carlos on 07/31/19 5:[address] Patient Name: MEHUL FRAIRE Admission Status: ER Accout number: [id number] Admission Date: 07-31-2019 : 1955 Admission Diagnosis: Attending: LUZMA SMITH Current LOS: 1 Anticipated DC Date: Planned Disposition: Home Primary Insurance: [employer] Discharge Planning Comments: CM met with patient to complete initial dc planning assessment. CM educated patient on the CM role and verbal consent given by patient to complete assessment. Patient lives at home with his . At discharge patient plans to return home and feels this is a safe discharge. CM discussed availability of home health, rehab services, and medical equipment. Patient denied known discharge needs at this time. Patient might need shower chair, walker or crutches. CM will continue to follow and will assist as needed with dc plans/needs. Biomechanical Engineer: Domenica Carlos DCPIA - Discharge Planning Initial Assessment Updated by [email or web address]: Domenica Carlos on 07/31/19 6:05 pm * Is the patient Alert and Oriented? Yes * How many steps to enter\exit or inside your home? * PCP JUDIE LOPEZ * [facility]acy [facility] * Preadmission Environment Home with Family * ADLs Independent * Other Equipment ? WALKER, ? CRUTCHES, BSC * List name and contact numbers for known caregivers / representatives who currently or will assist patient after discharge: ISI FRAIRE - [facility] - [phone] * Verbal permission to speak to the caregivers and representatives has been obtained from the patient. Yes * Community resources currently utilized None * Additional services required to return to the preadmission environment? No * Can the patient safely return to the preadmission environment? Yes * Has this patient been hospitalized within the prior 30 days at any hospital? No Last DP export: 07/31/19 5:08 p Patient Name: MEHUL FRAIRE Page 86227 at 1815 All edits/amendments must be made on the electronic document DICTATION DATE: 07/31/191814 CARDIOVASCULAR SONOGRAPHER: PETER 07/31/191814 RPT#: [id number] DC DATE: STATUS: ADM IN [facility] [address] [place] [address] END OF REPORT
[2019-07-31 20:00] VITALS: BP 118/63
[2019-08-01 04:00] VITALS: BP 107/59
[2019-08-01 06:09] LABS: BASOPHILS 0.2 % (0-2); EOSINOPHILS 1.8 % (0-7); HEMATOCRIT 43.9 % (42.0-54.0); IMMATURE GRANULOCYTES 0.2 % (0-5); LYMPHOCYTES 15.6 % (15-50); MCH 27.9 pg (26.0-34.0); MCHC 31.9 g/dL (31.0-37.0); MCV 87.6 fL (80.0-100.0); MEAN PLATELET VOLUME 10.8 fL (7.4-10.4); MONOCYTES 8.8 % (2-11); NEUTROPHILS 73.4 % (40-80); PLATELET COUNT 224 10x3/uL (130-400); RBC 5.01 10x6/uL (4.20-6.10); WBC 9.1 10x3/uL (4.8-10.8)
[2019-08-01 06:22] LABS: APTT 48.1 SECONDS (22.8-39.4); INR 1.94 (0.85-1.17); PROTIME 21.9 SECONDS (11.6-15.0)
[2019-08-01 06:44] LABS: ALBUMIN 3.9 g/dL (3.4-5.0); ALKALINE PHOSPHATASE 62 U/L (30-120); ALT (SGPT) 34 U/L (10-68); BILIRUBIN - TOTAL 0.74 mg/dL (0.2-1.3); CALC OSMOLALITY 271 mosm/kg (275-300); CALCIUM 8.5 mg/dL (8.5-10.1); CARBON DIOXIDE 30.1 mmol/L (21.0-32.0); CHLORIDE - SERUM 97 mmol/L (98-107); GLUCOSE 134 mg/dL (74-106); MAGNESIUM - SERUM 1.7 mg/dL (1.8-2.4); POTASSIUM - SERUM 3.4 mmol/L (3.5-5.1); PRO BNP 54 pg/mL (0-125); SODIUM 134 mmol/L (136-145); eGFR NON AFRICAN AMERICAN 80 mL/min (90-120)
[2019-08-01 06:45] LABS: UREA NITROGEN 19 mg/dL (7-18)
[2019-08-01 08:25] VITALS: BP 127/65
[2019-08-01 09:29] VITALS: BP 119/59
[2019-08-01 12:51] LABS: INR 2.02 (0.85-1.17); PROTIME 22.6 SECONDS (11.6-15.0)
[2019-08-01 13:11] VITALS: BMI 40.0
[2019-08-01 13:18] LABS: BILIRUBIN NEGATIVE (NEGATIVE); GLUCOSE NEGATIVE (NEGATIVE); KETONE NEGATIVE (NEGATIVE); NITRITE NEGATIVE (NEGATIVE); SPECIFIC GRAVITY 1.025 (1.005-1.020); UROBILINOGEN NORMAL (NORMAL)
[2019-08-01 13:51] VITALS: BP 110/63
[2019-08-01] MEDS ORDERED: LOVENOX40 MG/0.4 SC (13:52)
[2019-08-01] MEDS ORDERED: DILAUDID2 MG PO (13:52)
[2019-08-01] MEDS ORDERED: PERCOCET 10-321 EAC1 PO (14:57)
[2019-08-01 20:00] VITALS: BP 116/48
--- NOTE | 2019-08-01 20:42 | MORECARE ---
CASE MANAGEMENT DISCHARGE SUMMARY PATIENT: MEHUL FRAIRE SR UNIT: [id number] ADM DATE: 07/31/19 AGE: 63 : 55 SEX: M ROOM/BED: D.2231 AUTHOR: RASHIDA,DOC PHYSICIAN: REFERRING PHYSICIAN: LUZMA SMITH MD DATE OF SERVICE: 08/01/19 Discharge Plan Patient Name: MEHUL FRAIRE Facility: [facility]:[place] : 1955 Planned Disposition: Home Anticipated Discharge Date: Discharge Date: Expected LOS: Initial Reviewer: [email or web address] Initial Review Date: 07/31/2019 Generated: 08/01/19 9:41 pm Comments DCP- Discharge Planning Updated by [email or web address]: Domenica Carlos on 08/01/19 7:[address] Patient wasn't able to use crutches, walker or platform walker safely to go home. Plan to have surgery 08/04 once INR is down. Will have PT working with patient until patient is safe for discharge. CM will continue to follow and assist as needed with discharge planning / needs. DCP- Discharge Planning Updated by [email or web address]: Domenica Carlos on 07/31/19 5:[address] Patient Name: MEHUL FRAIRE Admission Status: ER Accout number: [id number] Admission Date: 07-31-2019 : 1955 Admission Diagnosis: Attending: LUZMA SMITH Current LOS: 1 Anticipated DC Date: Planned Disposition: Home Primary Insurance: [facility] Discharge Planning Comments: CM met with patient to complete initial dc planning assessment. CM educated patient on the CM role and verbal consent given by patient to complete assessment. Patient lives at home with his . At discharge patient plans to return home and feels this is a safe discharge. CM discussed availability of home health, rehab services, and medical equipment. Patient denied known discharge needs at this time. Patient might need shower chair, walker or crutches. CM will continue to follow and will assist as needed with dc plans/needs. Veneer Sorter: Domenica Carlos DCPIA - Discharge Planning Initial Assessment Updated by [email or web address]: Domenica Carlos on 07/31/19 6:05 pm * Is the patient Alert and Oriented? Yes * How many steps to enter\exit or inside your home? * PCP JUDIE LOPEZ * [facility] * Preadmission Environment Home with Family * ADLs Independent * Other Equipment ? WALKER, ? CRUTCHES, BSC * List name and contact numbers for known caregivers / representatives who currently or will assist patient after discharge: ISI FRAIRE - [facility] - [phone] * Verbal permission to speak to the caregivers and representatives has been obtained from the patient. Yes * Community resources currently utilized None * Additional services required to return to the preadmission environment? No * Can the patient safely return to the preadmission environment? Yes * Has this patient been hospitalized within the prior 30 days at any hospital? No Last DP export: 07/31/19 5:15 p Patient Name: MEHUL FRAIRE Page 83018 at 2042 All edits/amendments must be made on the electronic document DICTATION DATE: 08/01/192040 SHEAR OPERATOR HELPER: PETER 08/01/192040 RPT#: [id number] DC DATE: STATUS: ADM IN [facility] [address] [place] [address] END OF REPORT
[2019-08-02] VITALS: BP 145/53
[2019-08-02 04:00] VITALS: BP 125/69
[2019-08-02 05:33] LABS: BASOPHILS 0.3 % (0-2); EOSINOPHILS 2.7 % (0-7); HEMATOCRIT 41.4 % (42.0-54.0); HEMOGLOBIN 13.2 g/dL (13.5-17.5); IMMATURE GRANULOCYTES 0.4 % (0-5); LYMPHOCYTES 23.1 % (15-50); MCH 28.1 pg (26.0-34.0); MCHC 31.9 g/dL (31.0-37.0); MCV 88.1 fL (80.0-100.0); MEAN PLATELET VOLUME 11.1 fL (7.4-10.4); MONOCYTES 10.8 % (2-11); NEUTROPHILS 62.7 % (40-80); PLATELET COUNT 226 10x3/uL (130-400); RDW 14.8 % (11.5-14.5); WBC 7.1 10x3/uL (4.8-10.8)
[2019-08-02 05:53] LABS: ALBUMIN 3.5 g/dL (3.4-5.0); ALKALINE PHOSPHATASE 58 U/L (30-120); ALT (SGPT) 28 U/L (10-68); BILIRUBIN - TOTAL 0.84 mg/dL (0.2-1.3); CALC OSMOLALITY 273 mosm/kg (275-300); CARBON DIOXIDE 28.7 mmol/L (21.0-32.0); CHLORIDE - SERUM 99 mmol/L (98-107); GLUCOSE 111 mg/dL (74-106); POTASSIUM - SERUM 3.4 mmol/L (3.5-5.1); SODIUM 136 mmol/L (136-145); UREA NITROGEN 16 mg/dL (7-18); eGFR NON AFRICAN AMERICAN 80 mL/min (90-120)
[2019-08-02 05:56] LABS: MAGNESIUM - SERUM 2.3 mg/dL (1.8-2.4)
[2019-08-02 08:24] VITALS: BP 121/56
[2019-08-02 12:54] VITALS: BP 148/70
[2019-08-02 16:47] VITALS: BP 121/71
[2019-08-02 20:00] VITALS: BP 122/66
[2019-08-03 04:00] VITALS: BP 108/60
[2019-08-03 06:07] LABS: ALBUMIN 3.2 g/dL (3.4-5.0); ALKALINE PHOSPHATASE 52 U/L (30-120); ALT (SGPT) 24 U/L (10-68); BILIRUBIN - TOTAL 0.68 mg/dL (0.2-1.3); CALC OSMOLALITY 273 mosm/kg (275-300); CALCIUM 8.6 mg/dL (8.5-10.1); CARBON DIOXIDE 29.6 mmol/L (21.0-32.0); CHLORIDE - SERUM 100 mmol/L (98-107); GLUCOSE 113 mg/dL (74-106); MAGNESIUM - SERUM 2.1 mg/dL (1.8-2.4); PHOSPHOROUS 3.2 mg/dL (2.5-4.9); POTASSIUM - SERUM 3.6 mmol/L (3.5-5.1); PROTEIN - SERUM 6.6 g/dL (6.4-8.2); SODIUM 136 mmol/L (136-145); UREA NITROGEN 16 mg/dL (7-18); eGFR NON AFRICAN AMERICAN 80 mL/min (90-120)
[2019-08-03 06:09] LABS: HEMATOCRIT 40.2 % (42.0-54.0); HEMOGLOBIN 12.9 g/dL (13.5-17.5); MCH 28.3 pg (26.0-34.0); MCHC 32.1 g/dL (31.0-37.0); MCV 88.2 fL (80.0-100.0); MEAN PLATELET VOLUME 11.1 fL (7.4-10.4); PLATELET COUNT 210 10x3/uL (130-400); RBC 4.56 10x6/uL (4.20-6.10); RDW 14.8 % (11.5-14.5); WBC 6.9 10x3/uL (4.8-10.8)
[2019-08-03 06:37] LABS: EOSINOPHILS 3 % (0-7); LYMPHOCYTES 29 % (15-50); MONOCYTES 9 % (2-11); NEUTROPHILS 59 % (40-80); PLATELET ESTIMATE NORMAL
[2019-08-03 08:33] VITALS: BP 112/58
--- NOTE | 2019-08-03 13:40 | MORECARE ---
CASE MANAGEMENT DISCHARGE SUMMARY PATIENT: MEHUL FRAIRE SR UNIT: [id number] ADM DATE: 07/31/19 AGE: 63 : 55 SEX: M ROOM/BED: D.2231 AUTHOR: RASHIDADOC PHYSICIAN: REFERRING PHYSICIAN: LUZMA SMITH MD DATE OF SERVICE: 08/03/19 Discharge Plan Patient Name: MEHUL FRAIRE Facility: [facility]:[place] : 1955 Planned Disposition: Home Anticipated Discharge Date: Discharge Date: Expected LOS: Initial Reviewer: [email or web address] Initial Review Date: 07/31/2019 Generated: 08/03/19 2:40 pm Comments DCP- Discharge Planning Updated by [email or web address]: Alba Iraheta on 08/03/19 12:[address] Patient Name: MEHUL FRAIRE Encounter No: [id number] : 1955 Primary Insurance[facility] [employer] [facility] follow-up note: CM MET WITH PATIENT TO DISCUSS POSSIBLE IP REHAB VS SNF PLACEMENT AFTER SURGICAL INTERVENTION OF THE ANKLE. PATIENT IN AGREEMENT WITH IP REHAB AT [facility], OR [facility] RE[facility]. PATIENT STATED HE [place] NOT [place]. STATES HE FEELS HE WILL DO BETTER IN REHAB HERE CLOSE TO HOME. SILVIA FORM PRESENTED, EXPLAINED, AND SIGNED BY THE PATIENT. THE SIGNED FORM PLACED ON THE CHART AND A SIGNED COPY LEFT WITH THE PATIENT. Alba Iraheta MSN,RN,CM DCP- Discharge Planning Updated by [email or web address]: Domenica Carlos on 08/01/19 7:[address] Patient wasn't able to use crutches, walker or platform walker safely to go home. Plan to have surgery 08/04 once INR is down. Will have PT working with patient until patient is safe for discharge. CM will continue to follow and assist as needed with discharge planning / needs. DCP- Discharge Planning Updated by [email or web address]: Domenica Carlos on 07/31/19 5:[address] Patient Name: MEHUL FRAIRE Admission Status: ER Accout number: [id number] Admission Date: 07-31-2019 : 1955 Admission Diagnosis: Attending: LUZMA SMITH Current LOS: 1 Anticipated DC Date: Planned Disposition: Home Primary Insurance: [facility] Discharge Planning Comments: CM met with patient to complete initial dc planning assessment. CM educated patient on the CM role and verbal consent given by patient to complete assessment. Patient lives at home with his . At discharge patient plans to return home and feels this is a safe discharge. CM discussed availability of home health, rehab services, and medical equipment. Patient denied known discharge needs at this time. Patient might need shower chair, walker or crutches. CM will continue to follow and will assist as needed with dc plans/needs. Burr Filer: Domenica Carlos DCPIA - Discharge Planning Initial Assessment Updated by [email or web address]: Domenica Carlos on 07/31/19 6:05 pm * Is the patient Alert and Oriented? Yes * How many steps to enter\exit or inside your home? * PCP JUDIE LOPEZ * [facility] * Preadmission Environment Home with Family * ADLs Independent * Other Equipment ? WALKER, ? CRUTCHES, BSC * List name and contact numbers for known caregivers / representatives who currently or will assist patient after discharge: ISI FRAIRE - [facility] - [phone] * Verbal permission to speak to the caregivers and representatives has been obtained from the patient. Yes * Community resources currently utilized None * Additional services required to return to the preadmission environment? No * Can the patient safely return to the preadmission environment? Yes * Has this patient been hospitalized within the prior 30 days at any hospital? No Coverage Notice Reviewer: [email or web address] Marshall Iraheta Notice Issued Date-Time: 08/03/2019 9:25 Notice Type: Patient Choice Letter Notice Delivered To: Patient Relationship to Patient: Surveillance Investigator Name: Delivery Method: HAND - Hand Delivered Marcy Days: Prior Verbal Notification: Recipient Understood Notice: Yes Recipient Signature: Yes Med Rec Note Co-signed by Attending: Coverage Notice Comment: SILVIA SIGNED FOR IP REHAB AT [facility] OR [facility] Last DP export: 08/01/19 7:42 p Patient Name: MEHUL FRAIRE Page 72016 at 1340 All edits/amendments must be made on the electronic document DICTATION DATE: 08/03/191339 GEOPHYSICAL MANAGER: PETER 08/03/19 1340 RPT#: [id number] DC DATE: STATUS: ADM IN [facility] [address] [place] [address] END OF REPORT
[2019-08-03 20:00] VITALS: BP 125/62
[2019-08-04 04:00] VITALS: BP 113/54
[2019-08-04 05:18] LABS: BASOPHILS 0.4 % (0-2); EOSINOPHILS 3.1 % (0-7); HEMATOCRIT 40.3 % (42.0-54.0); HEMOGLOBIN 12.9 g/dL (13.5-17.5); IMMATURE GRANULOCYTES 0.3 % (0-5); LYMPHOCYTES 26.6 % (15-50); MCH 28.1 pg (26.0-34.0); MCV 87.8 fL (80.0-100.0); MEAN PLATELET VOLUME 10.3 fL (7.4-10.4); NEUTROPHILS 59.6 % (40-80); PLATELET COUNT 204 10x3/uL (130-400); RBC 4.59 10x6/uL (4.20-6.10); RDW 14.7 % (11.5-14.5); WBC 6.7 10x3/uL (4.8-10.8)
[2019-08-04 05:26] LABS: INR 1.23 (0.85-1.17); PROTIME 15.4 SECONDS (11.6-15.0)
[2019-08-04 05:31] LABS: ALBUMIN 3.3 g/dL (3.4-5.0); ALKALINE PHOSPHATASE 68 U/L (30-120); ALT (SGPT) 26 U/L (10-68); BILIRUBIN - TOTAL 0.63 mg/dL (0.2-1.3); CALC OSMOLALITY 279 mosm/kg (275-300); CALCIUM 8.7 mg/dL (8.5-10.1); CHLORIDE - SERUM 104 mmol/L (98-107); GLUCOSE 106 mg/dL (74-106); MAGNESIUM - SERUM 2.2 mg/dL (1.8-2.4); POTASSIUM - SERUM 3.5 mmol/L (3.5-5.1); PROTEIN - SERUM 6.5 g/dL (6.4-8.2); SODIUM 140 mmol/L (136-145); UREA NITROGEN 16 mg/dL (7-18); eGFR NON AFRICAN AMERICAN 80 mL/min (90-120)
[2019-08-04 08:16] VITALS: BP 113/67
[2019-08-04 13:39] VITALS: BP 136/73
[2019-08-04 16:20] VITALS: BP 129/57
[2019-08-04 20:00] VITALS: BP 130/67
[2019-08-05] VITALS: BP 120/79
[2019-08-05 04:00] VITALS: BP 119/65
[2019-08-05 05:26] LABS: BASOPHILS 0.3 % (0-2); EOSINOPHILS 3.3 % (0-7); HEMATOCRIT 40.7 % (42.0-54.0); IMMATURE GRANULOCYTES 0.3 % (0-5); LYMPHOCYTES 21.8 % (15-50); MCH 28.1 pg (26.0-34.0); MCHC 31.9 g/dL (31.0-37.0); MCV 87.9 fL (80.0-100.0); MEAN PLATELET VOLUME 10.6 fL (7.4-10.4); MONOCYTES 11.4 % (2-11); NEUTROPHILS 62.9 % (40-80); PLATELET COUNT 209 10x3/uL (130-400); RBC 4.63 10x6/uL (4.20-6.10)
[2019-08-05 05:52] LABS: ALBUMIN 3.3 g/dL (3.4-5.0); ALKALINE PHOSPHATASE 65 U/L (30-120); ALT (SGPT) 24 U/L (10-68); BILIRUBIN - TOTAL 0.58 mg/dL (0.2-1.3); CALCIUM 8.6 mg/dL (8.5-10.1); CARBON DIOXIDE 31.1 mmol/L (21.0-32.0); GLUCOSE 103 mg/dL (74-106); MAGNESIUM - SERUM 2.1 mg/dL (1.8-2.4); PHOSPHOROUS 3.2 mg/dL (2.5-4.9); PROTEIN - SERUM 6.7 g/dL (6.4-8.2); UREA NITROGEN 15 mg/dL (7-18); eGFR NON AFRICAN AMERICAN 80 mL/min (90-120)
[2019-08-05 06:04] LABS: CALC OSMOLALITY 272 mosm/kg (275-300); CHLORIDE - SERUM 100 mmol/L (98-107); POTASSIUM - SERUM 3.5 mmol/L (3.5-5.1); SODIUM 136 mmol/L (136-145)
[2019-08-05 09:36] VITALS: BP 135/64
[2019-08-05 15:59] VITALS: Ht 177.8 cm; Wt 126.6 kg
[2019-08-05 16:55] VITALS: BP 118/68
--- NOTE | 2019-08-05 17:02 | MORECARE ---
CASE MANAGEMENT DISCHARGE SUMMARY PATIENT: MEHUL FRAIRE SR UNIT: [id number] ADM DATE: 07/31/19 AGE: 63 : 55 SEX: M ROOM/BED: D.2231 AUTHOR: RASHIDADOC PHYSICIAN: REFERRING PHYSICIAN: LUZMA SMITH MD DATE OF SERVICE: 08/05/19 Discharge Plan Patient Name: MEHUL FRAIRE Facility: [facility]:[place] : 1955 Planned Disposition: Home Anticipated Discharge Date: Discharge Date: Expected LOS: Initial Reviewer: [email or web address] Initial Review Date: 07/31/2019 Generated: 08/05/19 6:02 pm Comments DCP- Discharge Planning Updated by [email or web address]: Alba Iraheta on 08/03/19 12:[address] Patient Name: MEHUL FRAIRE Encounter No: [id number] : 1955 Primary Insurance: [employer] WIP follow-up note: CM MET WITH PATIENT TO DISCUSS POSSIBLE IP REHAB VS SNF PLACEMENT AFTER SURGICAL INTERVENTION OF THE ANKLE. PATIENT IN AGREEMENT WITH IP REHAB AT [facility], OR [facility] REHAB. PATIENT STATED [place]. STATES HE FEELS HE WILL DO BETTER IN REHAB HERE CLOSE TO HOME. SILVIA FORM PRESENTED, EXPLAINED, AND SIGNED BY THE PATIENT. THE SIGNED FORM PLACED ON THE CHART AND A SIGNED COPY LEFT WITH THE PATIENT. Alba Iraheta MSN,RN,CM DCP- Discharge Planning Updated by [email or web address]: Domenica Carlos on 08/01/19 7:[address] Patient wasn't able to use crutches, walker or platform walker safely to go home. Plan to have surgery 08/04 once INR is down. Will have PT working with patient until patient is safe for discharge. CM will continue to follow and assist as needed with discharge planning / needs. DCP- Discharge Planning Updated by [email or web address]: Domenica Carlos on 07/31/19 5:[address] Patient Name: MEHUL FRAIRE Admission Status: ER Accout number: [id number] Admission Date: 07-31-2019 : 1955 Admission Diagnosis: Attending: LUZMA SMITH Current LOS: 1 Anticipated DC Date: Planned Disposition: Home Primary Insurance: [facility] Discharge Planning Comments: CM met with patient to complete initial dc planning assessment. CM educated patient on the CM role and verbal consent given by patient to complete assessment. Patient lives at home with his . At discharge patient plans to return home and feels this is a safe discharge. CM discussed availability of home health, rehab services, and medical equipment. Patient denied known discharge needs at this time. Patient might need shower chair, walker or crutches. CM will continue to follow and will assist as needed with dc plans/needs. Artillery Meteorological Man: Domenica Carlos DCPIA - Discharge Planning Initial Assessment Updated by [email or web address]: Domenica Carlos on 07/31/19 6:05 pm * Is the patient Alert and Oriented? Yes * How many steps to enter\exit or inside your home? * PCP JUDIE LOPEZ * [facility] * Preadmission Environment Home with Family * ADLs Independent * Other Equipment ? WALKER, ? CRUTCHES, BSC * List name and contact numbers for known caregivers / representatives who currently or will assist patient after discharge: ISI FRAIRE - [facility] - [phone] * Verbal permission to speak to the caregivers and representatives has been obtained from the patient. Yes * Community resources currently utilized None * Additional services required to return to the preadmission environment? No * Can the patient safely return to the preadmission environment? Yes * Has this patient been hospitalized within the prior 30 days at any hospital? No Coverage Notice Reviewer: [id number] Marshall Iraheta Notice Issued Date-Time: 08/03/2019 9:25 Notice Type: Patient Choice Letter Notice Delivered To: Patient Relationship to Patient: Supervisor Shipfitters Name: Delivery Method: HAND - Hand Delivered Marcy Days: Prior Verbal Notification: Recipient Understood Notice: Yes Recipient Signature: Yes Med Rec Note Co-signed by Attending: Coverage Notice Comment: SILVIA SIGNED FOR IP REHAB AT [facility] OR [facility] Last DP export: 08/03/19 12:40 p Patient Name: MEHUL FRAIRE Page 75900 at 1702 All edits/amendments must be made on the electronic document DICTATION DATE: 08/05/191701 DISTILLERY LABORER: PETER 08/05/191701 RPT#: [id number] DC DATE: STATUS: ADM IN [facility] [address] [place] [address] END OF REPORT
[2019-08-05 20:30] VITALS: BP 126/57
[2019-08-06 00:30] VITALS: BP 115/55
[2019-08-06 04:30] VITALS: BP 127/64
[2019-08-06 04:50] LABS: BASOPHILS 0.4 % (0-2); EOSINOPHILS 2.4 % (0-7); HEMOGLOBIN 12.7 g/dL (13.5-17.5); IMMATURE GRANULOCYTES 0.3 % (0-5); MCH 28.3 pg (26.0-34.0); MCHC 31.8 g/dL (31.0-37.0); MCV 89.1 fL (80.0-100.0); MEAN PLATELET VOLUME 10.7 fL (7.4-10.4); MONOCYTES 13.1 % (2-11); NEUTROPHILS 64.8 % (40-80); PLATELET COUNT 219 10x3/uL (130-400); RBC 4.49 10x6/uL (4.20-6.10); RDW 14.8 % (11.5-14.5); WBC 7.1 10x3/uL (4.8-10.8)
[2019-08-06 05:22] LABS: ALBUMIN 3.3 g/dL (3.4-5.0); ANION GAP 8.4 mmol/L (8-16); BILIRUBIN - TOTAL 0.78 mg/dL (0.2-1.3); CALCIUM 8.4 mg/dL (8.5-10.1); CREATININE - SERUM 1.1 mg/dL (0.6-1.3); POTASSIUM - SERUM 3.4 mmol/L (3.5-5.1); PROTEIN - SERUM 6.8 g/dL (6.4-8.2)
[2019-08-06 08:00] VITALS: BP 123/67
[2019-08-06 12:57] VITALS: BP 126/63
--- NOTE | 2019-08-06 13:52 | OP ---
PATIENT NAME: MEHUL FRAIRE SR MEDICAL RECORD: [id number] :55 LOCATION:D.MS [place]1 ADMISSION DATE:07/31/19 SURGEON: ESTRADA SHIPLEY DO DATE OF OPERATION: 08/05/2019 PREOPERATIVE DIAGNOSIS: Left ankle fracture. POSTOPERATIVE DIAGNOSIS: Left ankle fracture. PROCEDURE PERFORMED: Left ankle open reduction and internal fixation. OPERATIVE FINDINGS: Left ankle fracture with syndesmotic disruption. INDICATIONS: Mr. Fraire is a 63-year-old male who slipped and twisted his left ankle last week. He was admitted to the hospital in anticipation for fixing it and he was on Coumadin, given vitamin K, which did not adequately reduce his INR. We then put him on Lovenox and stopped the Coumadin and decided to do the ankle today. He could not get around, so he was admitted until today. He was aware of the risks including infection, bleeding, damage to nerves and vessels, need for further surgery, continued pain, blood clots, refracture of the ankle, malunion, nonunion and even and he signed the consent. SURGEON: Estrada Shipley DO DESCRIPTION OF PROCEDURE: The patient was taken to the operative suite after given a block by anesthesia in preoperative area, placed in supine position, given general anesthetic and LMA was placed. He was given 2 grams of Ancef preoperatively. Left lower extremity was then prepped and draped in sterile fashion. A timeout was performed and everyone was in agreement with the correct side, site, patient and procedure. We then began by exsanguinating the left lower extremity with an Esmarch, tourniquet was inflated to 350 mmHg, it was up for 27 minutes. We then began by making an incision down on the lateral aspect of the ankle to the fibula. Fibula was exposed as well as the fracture, it was cleaned out and clamps placed on, the plate was then put on and confirmed to be in good position on AP and lateral. Once that was adequately placed, the distal locking screws were then placed and then proximally to put 3 cortical screws in the fibula as well as one locking screw at the most proximal hole and then stressed the ankle and saw that it opened up medially. There was medial clear space widening and put across a ZipTight with reduction of the syndesmosis, nicely reduced it with stress and did not open up. Then tourniquet was let down during the procedure. She was having bleeding, had a venous tourniquet and then the oozing stopped. The AP and lateral were taken as well as a mortise view, seen to be in good position with all the hardware and good fixation. I then irrigated the site and the site was closed by Mukul White, certified surgical zoning assistant and closed with 2-0 Vicryl in inverted interrupted fashion and ZipLine was placed on the ankle. He was then dressed with Adaptic, 4 x 4s, ABD pad on the heel and over the incision, this was covered with cast padding and placed in a posterior splint and secured in place with an Rogelio wrap. He was then awakened and taken to recovery in stable condition. Blood loss was approximately 150 mL. COMPLICATIONS: None. TRANSINT:[id number] Voice Confirmation ID: [id number] DOCUMENT ID: [id number] OPERATIVE REPORT [id number] MEHUL FRAIRE SR, MICHAEL D, DO at 1352 CC: [id number] DICTATION DATE: 08/05/19829 FINISHER FINE DIAMOND DIES: 08/05/19 1110 ADM IN [place] [id number] [place] [id number]
[2019-08-06 17:10] VITALS: BP 108/59
[2019-08-06 20:00] VITALS: BP 131/55
--- NOTE | 2019-08-06 21:11 | MORECARE ---
CASE MANAGEMENT DISCHARGE SUMMARY PATIENT: MEHUL FRAIRE SR UNIT: [id number] ADM DATE: 07/31/19 AGE: 63 : 55 SEX: M ROOM/BED: D.2231 AUTHOR: RASHIDA,DOC PHYSICIAN: REFERRING PHYSICIAN: LUZMA SMITH MD DATE OF SERVICE: 08/06/19 Discharge Plan Patient Name: MEHUL FRAIRE Facility: [facility]:[place] : 1955 Planned Disposition: Home Anticipated Discharge Date: Discharge Date: Expected LOS: Initial Reviewer: [id number] Initial Review Date: 07/31/2019 Generated: 08/06/19 10:10 pm Comments DCP- Discharge Planning Updated by [email or web address]: oDmenica Carlos on 08/06/19 8:[address] Still awaiting auth for Inpatient Rehab @ [facility]. CM will continue to follow and assist as needed with discharge planning needs. DCP- Discharge Planning Updated by [email or web address]: Alba Iraheta on 08/03/19 12:[address] Patient Name: MEHUL FRAIRE Encounter No: [id number] : 1955 Primary Insurance: [employer] [facility] follow-up note: CM MET WITH PATIENT TO DISCUSS POSSIBLE IP REHAB VS SNF PLACEMENT AFTER SURGICAL INTERVENTION OF THE ANKLE. PATIENT IN AGREEMENT WITH IP REHAB AT [facility], OR [facility]. PATIENT STATED HE DOES NOT WANT TO GO TO THE [place] REHAB. STATES HE FEELS HE WILL DO BETTER IN REHAB HERE CLOSE TO HOME. SILVIA FORM PRESENTED, EXPLAINED, AND SIGNED BY THE PATIENT. THE SIGNED FORM PLACED ON THE CHART AND A SIGNED COPY LEFT WITH THE PATIENT. Alba Iraheta MSN,RN,CM DCP- Discharge Planning Updated by [email or web address]: Domenica Carlos on 08/01/19 7:[address] Patient wasn't able to use crutches, walker or platform walker safely to go home. Plan to have surgery 08/04 once INR is down. Will have PT working with patient until patient is safe for discharge. CM will continue to follow and assist as needed with discharge planning / needs. DCP- Discharge Planning Updated by [email or web address]: Domenica Carlos on 07/31/19 5:[address] Patient Name: MEHUL FRAIRE Admission Status: ER Accout number: [id number] Admission Date: 07-31-2019 : 1955 Admission Diagnosis: Attending: LUZMA SMITH Current LOS: 1 Anticipated DC Date: Planned Disposition: Home Primary Insurance: [facility] Discharge Planning Comments: CM met with patient to complete initial dc planning assessment. CM educated patient on the CM role and verbal consent given by patient to complete assessment. Patient lives at home with his . At discharge patient plans to return home and feels this is a safe discharge. CM discussed availability of home health, rehab services, and medical equipment. Patient denied known discharge needs at this time. Patient might need shower chair, walker or crutches. CM will continue to follow and will assist as needed with dc plans/needs. Precast Concrete Products Installer: Domenica Carlos DCPIA - Discharge Planning Initial Assessment Updated by [email or web address]: Domenica Terrance on 07/31/19 6:05 pm * Is the patient Alert and Oriented? Yes * How many steps to enter\exit or inside your home? * PCP JUDIE LOPEZ * Pharmacy [facility] * Preadmission Environment Home with Family * ADLs Independent * Other Equipment ? WALKER, ? CRUTCHES, BSC * List name and contact numbers for known caregivers / representatives who currently or will assist patient after discharge: ISI FRAIRE - [facility] - [phone] * Verbal permission to speak to the caregivers and representatives has been obtained from the patient. Yes * Community resources currently utilized None * Additional services required to return to the preadmission environment? No * Can the patient safely return to the preadmission environment? Yes * Has this patient been hospitalized within the prior 30 days at any hospital? No Coverage Notice Reviewer: [id number] Marshall Iraheta Notice Issued Date-Time: 08/03/2019 9:25 Notice Type: Patient Choice Letter Notice Delivered To: Patient Relationship to Patient: Painting Technician Name: Delivery Method: HAND - Hand Delivered Marcy Days: Prior Verbal Notification: Recipient Understood Notice: Yes Recipient Signature: Yes Med Rec Note Co-signed by Attending: Coverage Notice Comment: SILVIA SIGNED FOR IP REHAB AT [facility] OR [facility] Last DP export: 08/05/19 4:02 p Patient Name: MEHUL FRAIRE Page 23682 at 2111 All edits/amendments must be made on the electronic document DICTATION DATE: 08/06/192109 BREWMASTER: PETER 08/06/192109 RPT#: [id number] DC DATE: STATUS: ADM IN [facility] [address] [place] [address] END OF REPORT
[2019-08-07 05:37] LABS: BASOPHILS 0.3 % (0-2); HEMATOCRIT 38.3 % (42.0-54.0); HEMOGLOBIN 11.9 g/dL (13.5-17.5); IMMATURE GRANULOCYTES 0.2 % (0-5); LYMPHOCYTES 23.2 % (15-50); MCH 27.6 pg (26.0-34.0); MCHC 31.1 g/dL (31.0-37.0); MCV 88.9 fL (80.0-100.0); MONOCYTES 13.4 % (2-11); NEUTROPHILS 59.9 % (40-80); PLATELET COUNT 222 10x3/uL (130-400); RBC 4.31 10x6/uL (4.20-6.10); RDW 14.8 % (11.5-14.5)
[2019-08-07 05:57] LABS: ALBUMIN 3.1 g/dL (3.4-5.0); ANION GAP 9.5 mmol/L (8-16); BILIRUBIN - TOTAL 0.7 mg/dL (0.2-1.3); CALCIUM 8.6 mg/dL (8.5-10.1); CREATININE - SERUM 1.1 mg/dL (0.6-1.3); POTASSIUM - SERUM 3.5 mmol/L (3.5-5.1); PROTEIN - SERUM 6.8 g/dL (6.4-8.2)
[2019-08-07 07:47] VITALS: BP 134/66
[2019-08-07 12:08] VITALS: BP 126/63
[2019-08-07] MEDS ORDERED: COUMADIN5 MG PO (13:51)
[2019-08-07] MEDS ORDERED: HUMALOG 30100 UNITS/ SC (13:53)
[2019-08-07] MEDS ORDERED: MIRALAX17 GM PO (13:53)
[2019-08-07] MEDS ORDERED: PULMICORT0.5 MG/21 UPD (13:53)
[2019-08-07] MEDS ORDERED: PERCOCET 10-321 EAC1 PO (13:53)
[2019-08-07] MEDS ORDERED: COLACE100 MG PO (13:53)
[2019-08-07] MEDS ORDERED: COUMADIN10 MG PO ×2 (13:53)
[2019-08-07] MEDS ORDERED: PLAVIX75 MG PO (13:53)
[2019-08-07] MEDS ORDERED: PROTONIX40 MG PO (13:53)
--- NOTE | 2019-08-07 13:59 | MORECARE ---
CASE MANAGEMENT DISCHARGE SUMMARY PATIENT: MEHUL FRAIRE SR UNIT: [id number] ADM DATE: 07/31/19 AGE: 63 : 55 SEX: M ROOM/BED: D.2231 AUTHOR: RASHIDA,DOC PHYSICIAN: REFERRING PHYSICIAN: LUZMA SMITH MD DATE OF SERVICE: 08/07/19 Discharge Plan Patient Name: MEHUL FRAIRE Facility: [facility]:[place] : 1955 Planned Disposition: Home Anticipated Discharge Date: Discharge Date: Expected LOS: Initial Reviewer: [email or web address] Initial Review Date: 07/31/2019 Generated: 08/07/19 2:58 pm Comments DCP- Discharge Planning Updated by [email or web address]: Domenica Carlos on 08/07/19 12:[address] CM received notification that patient has been approved for inpatient rehab @ [facility]. Yi stated that patient can admit today to rehab. Kait ALCANTAR notified of auth approval. CM will continue to follow and assist as needed with discharge planning / needs. DCP- Discharge Planning Updated by [email or web address]: Domenica Carlos on 08/06/19 8:[address] Still awaiting auth for Inpatient Rehab @ [facility]. CM will continue to follow and assist as needed with discharge planning needs. DCP- Discharge Planning Updated by [email or web address]: Alba Iraheta on 08/03/19 12:[address] Patient Name: MEHUL FRAIRE Encounter No: [id number] : 1955 Primary Insurance: [facility] DCP follow-up note: CM MET WITH PATIENT TO DISCUSS POSSIBLE IP REHAB VS SNF PLACEMENT AFTER SURGICAL INTERVENTION OF THE ANKLE. PATIENT IN AGREEMENT WITH IP REHAB AT [facility], OR [facility]. PATIENT STATED HE DOES NOT WANT TO GO TO THE [place]. STATES HE FEELS HE WILL DO BETTER IN REHAB HERE CLOSE TO HOME. SILVIA FORM PRESENTED, EXPLAINED, AND SIGNED BY THE PATIENT. THE SIGNED FORM PLACED ON THE CHART AND A SIGNED COPY LEFT WITH THE PATIENT. Alba Iraheta MSN,RN,CM DCP- Discharge Planning Updated by [email or web address]: Domenica Carlos on 08/01/19 7:[address] Patient wasn't able to use crutches, walker or platform walker safely to go home. Plan to have surgery 08/04 once INR is down. Will have PT working with patient until patient is safe for discharge. CM will continue to follow and assist as needed with discharge planning / needs. DCP- Discharge Planning Updated by [email or web address]: Domenica Carlos on 07/31/19 5:[address] Patient Name: MEHUL FRAIRE Admission Status: ER Accout number: [id number] Admission Date: 07-31-2019 : 1955 Admission Diagnosis: Attending: LUZMA SMITH Current LOS: 1 Anticipated DC Date: Planned Disposition: Home Primary Insurance: [employer] [facility] Discharge Planning Comments: CM met with patient to complete initial dc planning assessment. CM educated patient on the CM role and verbal consent given by patient to complete assessment. Patient lives at home with his . At discharge patient plans to return home and feels this is a safe discharge. CM discussed availability of home health, rehab services, and medical equipment. Patient denied known discharge needs at this time. Patient might need shower chair, walker or crutches. CM will continue to follow and will assist as needed with dc plans/needs. Boiler Operators Supervisor: Domenica Cralos DCPIA - Discharge Planning Initial Assessment Updated by [email or web address]: Domenica Carlos on 07/31/19 6:05 pm * Is the patient Alert and Oriented? Yes * How many steps to enter\exit or inside your home? * PCP JUDIE LOPEZ * [facility]acy [facility] * Preadmission Environment Home with Family * ADLs Independent * Other Equipment ? WALKER, ? CRUTCHES, BSC * List name and contact numbers for known caregivers / representatives who currently or will assist patient after discharge: ISI FRAIRE - [facility] - [phone] * Verbal permission to speak to the caregivers and representatives has been obtained from the patient. Yes * Community resources currently utilized None * Additional services required to return to the preadmission environment? No * Can the patient safely return to the preadmission environment? Yes * Has this patient been hospitalized within the prior 30 days at any hospital? No Coverage Notice Reviewer: [id number] Marshall Iraheta Notice Issued Date-Time: 08/03/2019 9:25 Notice Type: Patient Choice Letter Notice Delivered To: Patient Relationship to Patient: Caddy/Caddie Supervisor Name: Delivery Method: HAND - Hand Delivered Marcy Days: Prior Verbal Notification: Recipient Understood Notice: Yes Recipient Signature: Yes Med Rec Note Co-signed by Attending: Coverage Notice Comment: SILVIA SIGNED FOR IP REHAB AT [facility] OR [facility] DP export: 08/06/19 8:11 pm Patient Name: MEHUL FRAIRE Page 07076 at 1359 All edits/amendments must be made on the electronic document DICTATION DATE: 08/07/19 1358 WINDOWS SOFTWARE ENGINEER: PETER 08/07/19 1358 RPT#: [id number] DC DATE: STATUS: ADM IN [facility] [address] [place] [address] END OF REPORT
--- NOTE | 2019-08-07 16:31 | OP ---
PATIENT NAME: MEHUL FRAIRE SR MEDICAL RECORD: [id number] :55 LOCATION:D.MS [place] ADMISSION DATE:07/31/19 SURGEON: ESTRADA SHIPLEY DO DATE OF OPERATION: 08/05/2019 PROCEDURE PERFORMED: Left ankle open reduction internal fixation. PREOPERATIVE DIAGNOSES: Left ankle fracture with displaced distal fibula fracture and syndesmotic injury. POSTOPERATIVE DIAGNOSES: Left ankle fracture with displaced distal fibula fracture and syndesmotic injury. INDICATIONS: Mr. Fraire is a 63-year-old male who fell and twisted his left ankle getting out of his boot last week. He was on Coumadin and Plavix. His INR was not normalized, so we had to put him off to this week. This happened last week. Once that was normalized, we are ready for surgery. I consented him and he is aware of the risks including infection, bleeding, damage to nerves and vessels, need for further surgery, blood clots, and even , continued pain, loss of range of motion of the ankle and arthritis in the ankle. He was aware of all that and signed a consent. SURGEON: Estrada Shipley DO DESCRIPTION OF PROCEDURE: The patient received a block by anesthesia. He was taken to the operative suite, laid in supine position, given general anesthetic and LMA was placed. He was given 2 grams of Ancef preoperatively. Left lower extremity was then prepped and draped in sterile fashion. Timeout was performed. Everyone was in agreeance with the correct side, site, patient and procedure. I then exsanguinated the left lower extremity and inflated the tourniquet, the tourniquet was up for 27 minutes. The incision was then made over the fibula. Careful dissection was made down to the fibula. Fracture was cleaned out and clamped together with a point to point and then a Josefina plate was put on the lateral aspect and pinned into place. Once it was in good position on AP and lateral, the plate was locked distally and then we put in 3 screws proximally and the final one being a locking screw. I then stressed the ankle joint in a mortise view with external rotation of the ankle. I saw the medial space did widen. I then put across the ZipTight and cinched it down after clamping the joint into place with the point to point with the ankle dorsiflexed. I then stressed that after that was completed and did not widened. The tourniquet was let down during this procedure via the venous tourniquet at 27 minutes. I then irrigated the site and Mukul White, certified surgical project administrative assistant closed the incision with a 2-0 Vicryl in an inverted interrupted fashion and ZipLine placed on the incision and this was dressed with Adaptic, 4 x 4s, ABD, Webril, posterior splint and 6-inch Rogelio wrap securing the splint in place. He was then awakened and taken to recovery in stable condition. Blood loss was approximately 150 mL. COMPLICATIONS: None. TRANSINT:[id number] Voice Confirmation ID: [id number] DOCUMENT ID: [id number] OPERATIVE REPORT [id number] MEHUL FRAIRE SR, MICHAEL D, DO at 1631 CC: [id number] DICTATION DATE: 08/06/19913 CAPACITOR ASSEMBLER: 08/06/19 1242 DIS IN 08/07/19 [id number] [place] [address]
--- NOTE | 2019-08-07 19:07 | MORECARE ---
CASE MANAGEMENT DISCHARGE SUMMARY PATIENT: MEHUL FRAIRE SR UNIT: [id number] ADM DATE: 07/31/19 AGE: 63 : 55 SEX: M ROOM/BED: D.2231 AUTHOR: RASHIDA,DOC PHYSICIAN: REFERRING PHYSICIAN: LUZMA SMITH MD DATE OF SERVICE: 08/07/19 Discharge Plan Patient Name: MEHUL FRAIRE Facility: [facility]:[place] : 1955 Planned Disposition: Home Anticipated Discharge Date: Discharge Date: 08/07/2019 Expected LOS: Initial Reviewer: [email or web address] Initial Review Date: 07/31/2019 Generated: 08/07/19 8:07 pm Comments DCP- Discharge Planning Updated by [email or web address]: Domenica Carlos on 08/07/19 12:[address] CM received notification that patient has been approved for inpatient rehab @ [facility]. Yi stated that patient can admit today to rehab. Kait ALCANTAR notified of auth approval. CM will continue to follow and assist as needed with discharge planning / needs. DCP- Discharge Planning Updated by [email or web address]: Domenica Carlos on 08/06/19 8:[address] Still awaiting auth for Inpatient Rehab @ [facility]. CM will continue to follow and assist as needed with discharge planning needs. DCP- Discharge Planning Updated by [email or web address]: Alba Iraheta on 08/03/19 12:[address] Patient Name: MEHUL FRAIRE Encounter No: [id number] : 1955 [facility] DCP follow-up note: CM MET WITH PATIENT TO DISCUSS POSSIBLE IP REHAB VS SNF PLACEMENT AFTER SURGICAL INTERVENTION OF THE ANKLE. PATIENT IN AGREEMENT WITH IP REHAB AT [facility], OR [facility] REH[facility]. PATIENT STATED HE DOES NOT WANT TO GO TO THE [place]. STATES HE FEELS HE WILL DO BETTER IN REHAB HERE CLOSE TO HOME. SILVIA FORM PRESENTED, EXPLAINED, AND SIGNED BY THE PATIENT. THE SIGNED FORM PLACED ON THE CHART AND A SIGNED COPY LEFT WITH THE PATIENT. Alba Iraheta MSN,RN,CM DCP- Discharge Planning Updated by [id number]: Domenica Carlos on 08/01/19 7:[address] Patient wasn't able to use crutches, walker or platform walker safely to go home. Plan to have surgery 08/04 once INR is down. Will have PT working with patient until patient is safe for discharge. CM will continue to follow and assist as needed with discharge planning / needs. DCP- Discharge Planning Updated by [email or web address]: Domenica Carlos on 07/31/19 5:[address] Patient Name: MEHUL FRAIRE Admission Status: ER Accout number: [id number] Admission Date: 07-31-2019 : 1955 Admission Diagnosis: Attending: LUZMA SMITH Current LOS: 1 Anticipated DC Date: Planned Disposition: Home Primary [facility] [facility] Discharge Planning Comments: CM met with patient to complete initial dc planning assessment. CM educated patient on the CM role and verbal consent given by patient to complete assessment. Patient lives at home with his . At discharge patient plans to return home and feels this is a safe discharge. CM discussed availability of home health, rehab services, and medical equipment. Patient denied known discharge needs at this time. Patient might need shower chair, walker or crutches. CM will continue to follow and will assist as needed with dc plans/needs. Music Education Adjunct Professor: Domenica Carlos DCPIA - Discharge Planning Initial Assessment Updated by [email or web address]: Domenica Carlos on 07/31/19 6:05 pm * Is the patient Alert and Oriented? Yes * How many steps to enter\exit or inside your home? * PCP JUDIE LOPEZ * Pharmacy [facility] * Preadmission Environment Home with Family * ADLs Independent * Other Equipment ? WALKER, ? CRUTCHES, BSC * List name and contact numbers for known caregivers / representatives who currently or will assist patient after discharge: ISI FRAIRE - [facility] - [phone] * Verbal permission to speak to the caregivers and representatives has been obtained from the patient. Yes * Community resources currently utilized None * Additional services required to return to the preadmission environment? No * Can the patient safely return to the preadmission environment? Yes * Has this patient been hospitalized within the prior 30 days at any hospital? No Coverage Notice Reviewer: [id number] Marshall Iraheta Notice Issued Date-Time: 08/03/2019 9:25 Notice Type: Patient Choice Letter Notice Delivered To: Patient Relationship to Patient: Laboratory Engineer Name: Delivery Method: HAND - Hand Delivered Marcy Days: Prior Verbal Notification: Recipient Understood Notice: Yes Recipient Signature: Yes Med Rec Note Co-signed by Attending: Coverage Notice Comment: SILVIA SIGNED FOR IP REHAB AT [facility] OR [facility] Last DP export: 08/07/19 12:59 pm Patient Name: MEHUL FRAIRE Page 16009 at 1907 All edits/amendments must be made on the electronic document DICTATION DATE: 08/07/191906 AIR CHIEF MARSHAL: PETER 08/07/191906 RPT#: [id number] DC DATE:08/07/19 STATUS: DIS IN [facility] [address] [place] [address] END OF REPORT
== END 2019-08-07 16:18 | DRG 493 ==
LOC: D.ER 13:30 → D.MS 14:07
PROVIDERS: Emergency Medicine; Family Medicine; Orthopaedic Surgery; ADMIT Internal Medicine Nephrology; ATTEND Internal Medicine Nephrology
PROC: 0QSK04Z Reposition Left Fibula with Internal Fixation Device, Open Approach (ICD-10-PCS; principal; 2019-08-05 07:00)
DX: S82.832A Other fracture of upper and lower end of left fibula, initial encounter for closed fracture (principal); N17.9 Acute kidney failure, unspecified; Z68.41 Body mass index [BMI] 40.0-44.9, adult; I42.8 Other cardiomyopathies; I48.20 Chronic atrial fibrillation, unspecified; Z86.73 Personal history of transient ischemic attack (TIA), and cerebral infarction without residual deficits; J44.9 Chronic obstructive pulmonary disease, unspecified; I50.9 Heart failure, unspecified; I11.0 Hypertensive heart disease with heart failure; I25.10 Atherosclerotic heart disease of native coronary artery without angina pectoris; E78.5 Hyperlipidemia, unspecified; E66.01 Morbid (severe) obesity due to excess calories; E11.40 Type 2 diabetes mellitus with diabetic neuropathy, unspecified; Z79.01 Long term (current) use of anticoagulants

== ENCOUNTER 2019-08-07 14:53 | Inpatient (IN) | payer OTHER ==
[~2019-08-07] VITALS: Ht 177.8 cm; Wt 126.6 kg
[~2019-08-07 14:53] MED LIST changes: +COUMADIN10 MG PO; +COUMADIN5 MG PO; +DILAUDID2 MG PO; +GLUCOPHAGE1000 MG PO; +GLUCOTROL 5 MG T5 MG PO; +HUMALOG 30100 UNITS/ SC; +LIPITOR40 MG PO; +LOVENOX40 MG/0.4 SC; +MIRALAX17 GM PO; +PERCOCET 10-321 EAC1 PO; +PULMICORT0.5 MG/21 UPD
--- NOTE | 2019-08-07 19:18 | NUR ---
PT LYING IN BED WATCHING TV. CL IN REACH. DENIES NEEDS AT THIS TIME. BED IN LOW SIDE RAILS X2. LUNGS CLEAR. BOWEL ACTIVE X4. CAST TO RIGHT LOWER LEG AND PROPPED ON PILLOW. RESP EVEN AND UNLABORED. A/O X4. WILL CONTINUE TO MONITOR.
[2019-08-07 22:28] VITALS: BP 106/39; BMI 40.1
[2019-08-08 05:35] LABS: BASOPHILS 0.3 % (0-2); EOSINOPHILS 4.2 % (0-7); HEMATOCRIT 37.3 % (42.0-54.0); HEMOGLOBIN 11.6 g/dL (13.5-17.5); IMMATURE GRANULOCYTES 0.2 % (0-5); LYMPHOCYTES 23.6 % (15-50); MCH 27.5 pg (26.0-34.0); MCHC 31.1 g/dL (31.0-37.0); MCV 88.4 fL (80.0-100.0); MONOCYTES 11.9 % (2-11); NEUTROPHILS 59.8 % (40-80); PLATELET COUNT 216 10x3/uL (130-400); RBC 4.22 10x6/uL (4.20-6.10); RDW 14.8 % (11.5-14.5); WBC 5.7 10x3/uL (4.8-10.8)
[2019-08-08 05:38] LABS: ANION GAP 7.8 mmol/L (8-16); CALCIUM 8.7 mg/dL (8.5-10.1); CARBON DIOXIDE 31.9 mmol/L (21.0-32.0); CREATININE - SERUM 1.1 mg/dL (0.6-1.3); POTASSIUM - SERUM 3.7 mmol/L (3.5-5.1)
[2019-08-08 05:40] LABS: INR 1.21 (0.85-1.17); PROTIME 15.2 SECONDS (11.6-15.0)
[2019-08-08 07:38] VITALS: BP 126/56
--- NOTE | 2019-08-08 11:35 | NUR ---
PATIENT ADMITTED TO REHAB FROM ACUTE FLOOR. HIS PCP IS DR. JUDIE Meier IN [place]. DISCHARGE PLANS ARE FOR PATIENT TO RETURN HOME AT DISCHARGE WITH HIS SPOUSE. WILL CONTINUE TO FOLLOW WITH PATIENT.
[2019-08-08 11:56] VITALS: Ht 177.8 cm; Wt 126.6 kg
--- NOTE | 2019-08-08 13:01 | NUR ---
SITTING UP IN BED EATING LUNCH. FEEDS SELF EASILY. LLE WRAPED IN SEAN WRAP. HE C/O PAIN TO LLE AND ASKS FOR PAIN MEDS OFTEN. CALL LIGHT IN REACH, BED IN LOWEST POSITION, SIDE RAILS UP X2.
--- NOTE | 2019-08-08 19:45 | NUR ---
PATIENT RECEIVED SITTING UP IN BED. ASSESSMENT & VITAL SIGNS DONE. BED LOW. ALARM ON. CALL LIGHT WITHIN REACH. WILL CONTINUE TO MONITOR.
[2019-08-08 21:45] VITALS: BP 124/61
--- NOTE | 2019-08-09 02:59 | NUR ---
I have reviewed this patient and I concur with the Shift Assessment completed by the Licensed Practical Nurse today this shift.
--- NOTE | 2019-08-09 04:28 | NUR ---
PATIENT AWAKE. USED CALL LIGHT FOR ASSIST. ASSISTANT HEALTH EDUCATOR CHANGED BEDDING. URINALS WITHIN REACH. CALL LIGHT WITHIN REACH. WILL CONTINUE TO MONITOR.
[2019-08-09 05:44] LABS: INR 1.21 (0.85-1.17); PROTIME 15.2 SECONDS (11.6-15.0)
--- NOTE | 2019-08-09 07:45 | NUR ---
A/A/OX4. STATES HAVING SOME PAIN IN LEFT LEG RIGHT NOW BUT WANTS TO WAIT UNTIL AFTER THERAPY TO TAKE MED. NO REQUESTS VOICED. SEAN BANDAGE ENTIRE LENGHT OF LEFT LEG APPEAR C/D/I. SIDERAILS UP X 2, CALL LIGHT AND WATER IN REACH, BED IN LOW LOCKED POSITION. WILL CONTINUE POC.
[2019-08-09 11:01] VITALS: BP 142/84
--- NOTE | 2019-08-09 13:00 | NUR ---
I have reviewed this patient and I concur with the Shift Assessment completed by the Licensed Practical Nurse today this shift.
[2019-08-09 20:00] VITALS: BP 107/60
--- NOTE | 2019-08-09 20:00 | NUR ---
PATIENT RECEIVED SITTING UP IN BED WATCHING TV. ASSESSMENT & VITAL SIGNS DONE. NO C/O PAIN OR DISTRESS AT THIS TIME. BED LOW. CALL LIGHT & URINALS WITHIN REACH. WILL CONTINUE TO MONITOR.
--- NOTE | 2019-08-10 01:27 | NUR ---
I have reviewed this patient and I concur with the Shift Assessment completed by the Licensed Practical Nurse today this shift.
[2019-08-10 06:54] LABS: INR 1.32 (0.85-1.17); PROTIME 16.3 SECONDS (11.6-15.0)
[2019-08-10 08:07] VITALS: BP 119/75
--- NOTE | 2019-08-10 13:00 | NUR ---
I have reviewed this patient and I concur with the Shift Assessment completed by the Licensed Practical Nurse today this shift.
--- NOTE | 2019-08-10 13:59 | NUR ---
PT REQUESTING A MUSCLE RELAXER DUE TO CRAMPING MUSCLE SPASMS IN LEFT HIP. DR. SHIPLEY CONTACTED AND ORDER RECEIVED FOR FLEXERIL 5MG PO Q8HP. MEDICATION GIVEN.
--- NOTE | 2019-08-10 19:13 | NUR ---
GREETED PATIENT AND INTRODUCED MYSELF HIS NURSE. PATIENT IS LAYING IN BED RESTING QUIETLY WITH LEFT LEG ELEVATED ON PILLOW FOR COMFORT. RESPIRATIONS EVEN. NO S/S OF DISTRESS. CALL LIGHT IN REACH. DENIES ANY FURTHER NEEDS AT THIS TIME.
[2019-08-10 20:00] VITALS: BP 109/60
--- NOTE | 2019-08-11 03:23 | NUR ---
PT RESTING QUIETLY WITH EYES CLOSED. RESPIRATIONS EVEN. NO S/S OF DISTRESS. CALL LIGHT IN REACH.
[2019-08-11 06:46] LABS: BASOPHILS 0.2 % (0-2); EOSINOPHILS 4.1 % (0-7); HEMATOCRIT 38.2 % (42.0-54.0); IMMATURE GRANULOCYTES 0.2 % (0-5); LYMPHOCYTES 28.1 % (15-50); MCH 27.6 pg (26.0-34.0); MCHC 31.4 g/dL (31.0-37.0); MEAN PLATELET VOLUME 10.9 fL (7.4-10.4); MONOCYTES 11.6 % (2-11); NEUTROPHILS 55.8 % (40-80); PLATELET COUNT 246 10x3/uL (130-400); RBC 4.34 10x6/uL (4.20-6.10); RDW 14.7 % (11.5-14.5); WBC 5.1 10x3/uL (4.8-10.8)
[2019-08-11 06:59] LABS: CALC OSMOLALITY 276 mosm/kg (275-300); CALCIUM 9.1 mg/dL (8.5-10.1); CARBON DIOXIDE 30.1 mmol/L (21.0-32.0); CHLORIDE - SERUM 103 mmol/L (98-107); GLUCOSE 103 mg/dL (74-106); POTASSIUM - SERUM 3.5 mmol/L (3.5-5.1); SODIUM 139 mmol/L (136-145); UREA NITROGEN 11 mg/dL (7-18); eGFR NON AFRICAN AMERICAN 80 mL/min (90-120)
[2019-08-11 07:01] LABS: INR 1.5 (0.85-1.17); PROTIME 17.9 SECONDS (11.6-15.0)
[2019-08-11 07:54] VITALS: BP 130/67
--- NOTE | 2019-08-11 13:57 | NUR ---
WALKING WITH THERAPY
--- NOTE | 2019-08-11 15:07 | NUR ---
SITTING UP IN BED IN ROOM. ASKS FOR PAIN MEDS OFTEN. C/O PAIN TO LLE. IS ALERT AND ORIENTED. CALL LIGHT IN REACH. BED IN LOWEST POSITION. SIDE RAILS UP X2.
[2019-08-11 19:45] VITALS: BP 129/66
--- NOTE | 2019-08-12 01:04 | NUR ---
PATIENT RESTING QUIETLY WATCHING TV. RESPIRATIONS EVEN. NO S/S OF DISTRESS. DENIES ANY NEEDS AT THIS TIME. CALL LIGHT IN REACH.
[2019-08-12 06:18] LABS: INR 1.61 (0.85-1.17)
[2019-08-12 08:00] VITALS: BP 105/56
--- NOTE | 2019-08-12 13:42 | NUR ---
SITTING UP IN BED. DR SHIPLEY VISITED EARLIER AND TOOK OFF WRAPING OF LLE. HE HAS A "ZIP TIE" TO HOLD INCISION TOGETHER. NO S/S INFECTION NOTED. NO DRAINAGE NOTED. WHITE BORDER GAUZE APPLIED. ORTHO BOOT ORDERED AND APPLIED TO LLE PER DR SHIPLYE.
[2019-08-12 19:58] VITALS: BP 105/40
--- NOTE | 2019-08-12 20:00 | NUR ---
PATIENT RECEIVED SITTING UP IN BED WATCHING TV. ASSESSMENT & VITAL SIGNS DONE. BED LOW. CALL LIGHT & URINALS WITHIN REACH. WILL CONTINUE TO MONITOR.
--- NOTE | 2019-08-13 00:15 | NUR ---
PATIENT USED CALL LIGHT FOR ASSIST. THID NURSE WENT TO ROOM. PATIENT LEFT LOWER LEG DRESSING OFF. ZIP TIES OVER HALF OFF. CHARGE NURSE CAME IN ROOM. CHARGE NURSE REMOVED DRESSING & CUT THE ZIP TIES THAT WERE TORN OFF. THIS NURSE WENT TO SUPPLY ROOM & GOT NS, GAUZE, STERI STRIPS. PATIENT INCISION AREA CLOSED AT LOWER HALF. AREA CLEANED WITH NS. DRIED OFF. STERI STIPS APPLIED TO LOWER AREA. 3/4 UP OF AREA RED OPEN AREA. IT WAS CLEANED, DRIED OFF. ZIP TIES TO UPPER INCISION LEFT IN PLACE. ISLAND DRESSING APPLIED OVER INCISION AREA. PATIENT TOLERATED WOUND CARE. PATIENT GIVEN PAIN MEDICATION AFTER DRESSING APPLIED. CALL LIGHT & URINALS WITHIN REACH. BED LOW. CALL LIGHT WITHIN REACH. WILL CONTINUE TO MONITOR.
--- NOTE | 2019-08-13 02:52 | NUR ---
PATIENT EYES CLOSED. RESPIRATIONS 18 & EVEN. LEFT LEG ELEVATED ON PILLOW. BED LOW. CALL LIGHT & URINALS WITHIN REACH. WILL CONTINUE TO MONITOR.
--- NOTE | 2019-08-13 03:52 | NUR ---
I have reviewed this patient and I concur with the Shift Assessment completed by the Licensed Practical Nurse today this shift.
[2019-08-13 07:11] LABS: BASOPHILS 0.4 % (0-2); EOSINOPHILS 3.9 % (0-7); HEMATOCRIT 38.5 % (42.0-54.0); HEMOGLOBIN 12.1 g/dL (13.5-17.5); IMMATURE GRANULOCYTES 0.2 % (0-5); LYMPHOCYTES 29.2 % (15-50); MCH 27.4 pg (26.0-34.0); MCHC 31.4 g/dL (31.0-37.0); MCV 87.1 fL (80.0-100.0); MEAN PLATELET VOLUME 10.6 fL (7.4-10.4); MONOCYTES 9.7 % (2-11); NEUTROPHILS 56.6 % (40-80); PLATELET COUNT 280 10x3/uL (130-400); RBC 4.42 10x6/uL (4.20-6.10); RDW 14.9 % (11.5-14.5); WBC 5.5 10x3/uL (4.8-10.8)
[2019-08-13 07:24] LABS: ANION GAP 8.8 mmol/L (8-16); CALCIUM 8.9 mg/dL (8.5-10.1); CARBON DIOXIDE 30.8 mmol/L (21.0-32.0); CREATININE - SERUM 1.1 mg/dL (0.6-1.3); POTASSIUM - SERUM 3.6 mmol/L (3.5-5.1)
[2019-08-13 07:33] LABS: INR 1.61 (0.85-1.17)
--- NOTE | 2019-08-13 08:00 | NUR ---
SHIFT ASSMT COMPLETED
[2019-08-13 08:56] VITALS: BP 127/64
--- NOTE | 2019-08-13 13:06 | NUR ---
Nutrition followw-up: Diet: Consistent CHO PO intake 100% of most meals Labs reviewed; glucose under excellent control Wt: 278# RDN following.
--- NOTE | 2019-08-13 15:47 | NUR ---
CARE TEAM MEETING: PATIENT DOING VERY WELL IN THERAPY AND WILL DISCHARGE HOME IN AM, 08/14/19. WILL CONTINUE TO FOLLOW WITH PATIENT.
--- NOTE | 2019-08-13 19:15 | NUR ---
PT IN BED WATCHING TV, NO NEEDS NOTED,FALL PRECAUTIONS IN PLACE, FLUIDS/CALL LIGHT WITHIN REACH
[2019-08-14 01:48] VITALS: BP 105/58
--- NOTE | 2019-08-14 02:51 | NUR ---
pt c/o pain to left ankle, prn 10/325 percocet was given, fluids/call light within reach
--- NOTE | 2019-08-14 06:17 | NUR ---
pt had bs of 56, pt wasn't concerned it happens at home, pt ate 2 protien bars he brought from home with a glass of apple juice and a glucerna, pt refuses any excess sugars
[2019-08-14 08:18] VITALS: BP 108/55
[2019-08-14] MEDS ORDERED: DILAUDID2 MG PO (08:56)
[2019-08-14] MEDS ORDERED: PERCOCET 10-321 EAC1 PO (08:57)
--- NOTE | 2019-08-14 08:58 | RHP ---
PATIENT: MEHUL FRAIRE MEDICAL RECORD: [id number] ACCOUNT: [id number] LOCATION:[facility] : 55 ADMISSION DATE: 08/07/19 REHABILITATION HISTORY AND PHYSICAL EXAMINATION POST ADMISSION PHYSICIAN EXAMINATION ADMITTING DIAGNOSIS: Fracture of the distal fibula. HISTORY OF PRESENT ILLNESS: The patient is a 63-year-old morbidly obese male with a fracture of the distal tibia. He is currently nonweightbearing on his left lower extremity status post ankle ORIF, on postop antibiotics. The patient has got a history of TIA, hypertension, coronary artery disease, CHF, chronic atrial fib, chronic anticoagulation, COPD, obstructive sleep apnea, diabetes, chronic back pain. The patient was seen and evaluated in the Emergency Department, showed imaging that revealed an acute displaced fracture of the distal fibula. He has also got pretty bad neuropathy secondary to spinal surgery and diabetes, underwent an ORIF on 08/05/[address] Butcher. Prior to this incident, he was completely independent with mobility and ADLs. He has got barriers to discharge home including self-care deficits, telemetry, nonweightbearing poor balance high fall risk, pain control, bridging his anticoagulation therapy to get him back to therapeutic levels. The patient has a right hand injury resulting in hypersensitivity and loss of digits. He has got decreased functional use of extension, which makes it difficult for using a rolling walker for management. He has got 2 steps to enter his home. He is morbidly obese. He will require intensive therapy to get back to his prior level of functioning and get some independence to return home. COMORBIDITIES: Include asthma, coronary artery disease, congestive heart failure, COPD, debility, diabetes, hypertension, falls, hyperlipidemia, morbid obesity, neuropathy, obstructive sleep apnea, TIA, and recurrent falls. PAST MEDICAL HISTORY: Significant for TIA, neuropathy. He has got a history of diabetes, hypertension, known coronary artery disease, atrial fib, COPD, congestive heart failure, obstructive sleep apnea, use of BiPAP, arthritis, chronic back pain. PAST SURGICAL HISTORY: Includes colon surgery, knee surgery, back surgery, and he has had surgery on his hand and shoulder. ALLERGIES: VICODIN, MORPHINE, FLOMAX, AND ERYTHROMYCIN. CURRENT MEDICATIONS: Include Plavix 75 mg daily; he is on Coumadin, Sunday, Sunday, and Sunday; he is on Coumadin 5 mg Sunday, Sunday, Sunday; spironolactone 25 mg daily; potassium 20 mEq daily; Lasix 80 mg daily; Lovenox 40 mg daily; Coreg 6.25 mg b.i.d.; he is on Glucotrol 5 mg b.i.d., Protonix 40 mg daily; he is on Brovana 15 mcg b.i.d.; Pulmicort 0.5 mg b.i.d.; sotalol 80 mg b.i.d.; Lyrica 150 t.i.d.; he is on MiraLax 17 g b.i.d.; Cozaar 25 mg at bedtime; he is on a low-resistant sliding scale with insulin; he is on Neurontin 300 mg b.i.d.; Colace 200 mg b.i.d.; Elvia 60 mg b.i.d.; Lipitor 40 mg at bedtime; he is on a glucose replacement protocol; he is on metformin 1000 mg b.i.d. with meals; Dilaudid 2 mg every 6 hours p.r.n. and Oxy for breakthrough pain one tab every 6 hours p.r.n. HABITS: No alcohol or tobacco use. HISTORY AND PHYSICAL [id number] MEHUL FRAIRE SR FAMILY HISTORY: Noncontributory. SOCIAL HISTORY: The patient hopes to return back home and get back to his prior level of functioning. REVIEW OF SYSTEMS: GENERAL: Does complain some weakness and fatigue. HEENT: Denies cold, cough, or congestion. CARDIOVASCULAR: Denies any chest pain. PHYSICAL EXAMINATION: VITAL SIGNS: Stable, afebrile. GENERAL: A morbidly obese gentleman in no acute distress upon exam. HEENT: Normocephalic and atraumatic. Mucosa moist. NECK: Supple. No lymphadenopathy. LUNGS: Clear in upper hernandez. He does have decreased breath sounds in the bases, but probably secondary to body habitus. HEART: Irregular rate and rhythm. ABDOMEN: Soft, benign, morbidly obese. EXTREMITIES: No clubbing, cyanosis or edema. Postop area looks pretty good. NEUROLOGIC: Does have some noted weakness. LABORATORY DATA: White count is 5.7, H&H of 11.6 and 37.3 and platelet count is 216. His INR is 1.21. Sodium 137, potassium 3.7, BUN and creatinine of 14 and 1.1, and blood sugar was noted to be 97. ASSESSMENT: This is a 63-year-old gentleman admitted to the rehab with a working diagnosis of distal fibular fracture with nonweightbearing status. The patient has potential to make improvement. We instituted the following multidisciplinary therapies including, but not limited to physical, occupational, respiratory, speech, nutritional services, prosthetics and orthotics. Given his complex medical condition and risk for more complications, rehabilitation services cannot be provided at a low level of care such as skilled nurse facility. PLAN: 1. Admit to [facility] for inpatient therapy to include the following disciplines: A. Physical therapy to improve gait, all transfer skills and bed mobility to a modified independent level. B. Occupational therapy to improve activities of daily living. C. Case management to assist with discharge planning and placement options. D. Nutrition to assist with nutritional needs. E. Rehabilitation nursing to assist in monitoring the patient's underlying medical conditions and to assist with any type of bowel or bladder management. 2. The patient's current medication and medical care will be continued. 3. The patient will be placed on standard fall precautions. 4. The patient estimated length of stay is approximately 7-10 days. 5. We will discuss this patient during care team staff meeting this week. I am going to go ahead and continue on home medications where appropriate. We will bridge him with Lovenox until we get his warfarin levels within normal limits and I will see again in the a.m. TRANSINT:[id number] Voice Confirmation ID: [id number] DOCUMENT ID: [id number] HISTORY AND PHYSICAL [id number] MEHUL FRAIRE SR notes whether there has been none or any medical/functional change since admission: - No change since pre-admission screen. TONY attests patient continues to be appropriate for IRF: - Continues to be appropriate. JOSE GUADALUPE HERNÁNDEZ MD at 0858 CC: [id number] DICTATION DATE: 08/08/19 0852 DELIVERER OUTSIDE: 08/08/19 1004 ADM IN [facility] [address] [place] [address]
--- NOTE | 2019-08-14 09:48 | NUR ---
PATIENT DISCHARGING HOME WITH FAMILY TODAY. PATIENT DECLINES HOME HEALTH AND ANY NEW DME NEEDS AT THIS TIME. DR. SHIPLEY 08/28/2019 @ 10:45. PATIENT CHOICE FORM DECLINING HOME HEALTH SIGNED, COPY GIVEN TO PATIENT AND ONE FILED IN CHART.[facility] FORM SIGNED, AND EXPLAINED, ONE GIVEN TO PATIENT AND ONE FILED IN CHART. DISCHARGE INSTRUCTIONS FAXED TO PCP AND TO KERRI GEE (PATIENT INSURANCE), , AUTH. # [id number]. WITH CONFORMATION RECIEVED
--- NOTE | 2019-08-14 12:14 | NUR ---
PATIENT HAS DECIDED THAT HE WOULD LIKE TO HAVE HOME HEALTH, HE HAS CHOSEN [facility] AFTER COMPARE DATA REVIEWED
--- NOTE | 2019-08-14 13:00 | NUR ---
DC'D HOME WITH KNEE WALKER STABLE CONDITION.REVIEWED MEDS,F/U APPT AND HOME HEALTH.HEVER CHANGED LLE.LEG BOOT ON.
--- NOTE | 2019-08-14 13:11 | NUR ---
[facility] DOES NOT ACCEPT PATIENT INSURANCE, SPOKE WITH PATIENT AND HE WILL ACCEPT [facility] FOR HOME HEALTH. ORDERS HAVE BEEN FAXED
== END 2019-08-14 13:00 | disposition home health service (06) | DRG 563 ==
LOC: D.REHAB 14:53
PROVIDERS: ADMIT Emergency Medicine; ATTEND Emergency Medicine
DX: S82.402A Unspecified fracture of shaft of left fibula, initial encounter for closed fracture (principal); I48.20 Chronic atrial fibrillation, unspecified; Z68.41 Body mass index [BMI] 40.0-44.9, adult; X58.XXXA Exposure to other specified factors, initial encounter; I11.0 Hypertensive heart disease with heart failure; I50.9 Heart failure, unspecified; I25.10 Atherosclerotic heart disease of native coronary artery without angina pectoris; Z79.01 Long term (current) use of anticoagulants; J44.9 Chronic obstructive pulmonary disease, unspecified; E11.40 Type 2 diabetes mellitus with diabetic neuropathy, unspecified; Z86.73 Personal history of transient ischemic attack (TIA), and cerebral infarction without residual deficits; E66.01 Morbid (severe) obesity due to excess calories

== ENCOUNTER 2019-10-07 18:32 | Inpatient (IN) | payer OTHER ==
[~2019-10-07] VITALS: Ht 177.8 cm; Wt 132.3 kg
[2019-10-07 23:11] VITALS: Ht 177.8 cm; Wt 132.3 kg
[2019-10-11] MEDS ORDERED: ELIQUIS2.5 MG PO (10:16)
[2019-10-11 13:38] VITALS: BP 113/65
== END 2019-10-11 14:39 | disposition home health service (06) | DRG 603 ==
LOC: D.ER 18:32 → D.MS 20:46
PROVIDERS: ADMIT Emergency Medicine; ATTEND Emergency Medicine
DX: L03.116 Cellulitis of left lower limb (principal); I48.20 Chronic atrial fibrillation, unspecified; Z68.41 Body mass index [BMI] 40.0-44.9, adult; Z79.01 Long term (current) use of anticoagulants; J44.9 Chronic obstructive pulmonary disease, unspecified; I25.10 Atherosclerotic heart disease of native coronary artery without angina pectoris; E66.01 Morbid (severe) obesity due to excess calories; I11.0 Hypertensive heart disease with heart failure; E11.40 Type 2 diabetes mellitus with diabetic neuropathy, unspecified; Z86.73 Personal history of transient ischemic attack (TIA), and cerebral infarction without residual deficits

== ENCOUNTER 2019-10-28 12:05 | Inpatient (IN) | payer OTHER ==
[~2019-10-28] VITALS: Ht 180.3 cm; Wt 128.4 kg
[~2019-10-28 12:05] MED LIST changes: +ELIQUIS2.5 MG PO
[2019-10-28 12:41] LABS: BASOPHILS 0.4 % (0-2); EOSINOPHILS 4.1 % (0-7); HEMATOCRIT 43.8 % (42.0-54.0); HEMOGLOBIN 14.3 g/dL (13.5-17.5); IMMATURE GRANULOCYTES 0.6 % (0-5); LYMPHOCYTES 22.2 % (15-50); MCH 27.5 pg (26.0-34.0); MCHC 32.6 g/dL (31.0-37.0); MCV 84.2 fL (80.0-100.0); MEAN PLATELET VOLUME 10.7 fL (7.4-10.4); NEUTROPHILS 60.7 % (40-80); PLATELET COUNT 266 10x3/uL (130-400); RDW 17.8 % (11.5-14.5)
[2019-10-28 13:07] LABS: ALBUMIN 4.1 g/dL (3.4-5.0); BILIRUBIN - TOTAL 0.36 mg/dL (0.2-1.3); C-REACTIVE PROTEIN 1.1 mg/dL (0.0-0.9); CALCIUM 9.5 mg/dL (8.5-10.1); CARBON DIOXIDE 30.7 mmol/L (21.0-32.0); CREATININE - SERUM 1.2 mg/dL (0.6-1.3); POTASSIUM - SERUM 3.7 mmol/L (3.5-5.1); PROTEIN - SERUM 7.6 g/dL (6.4-8.2)
[2019-10-28 13:57] VITALS: BP 111/76
[2019-10-28 14:43] LABS: ERYTHROCYTE SEDIMENTATION RATE 1 mm/hr (0-20)
[2019-10-28 16:25] VITALS: BP 111/76; BMI 39.5
[2019-10-28] MEDS ORDERED: COLACE100 MG PO (16:30)
[2019-10-28] MEDS ORDERED: CBD OIL (16:33)
[2019-10-28] MEDS ORDERED: DILAUDID2 MG PO (16:34)
--- NOTE | 2019-10-28 18:16 | NUR ---
TRIED CALLING DR. BLACKMAN'S OFFICE [phone] AND ON THAT VOICEMAIL IS STATED TO CALL [phone] FOR HOSPITAL CONSULT DID NOT GET AN ANSWER AND NO VOICEMAIL WAS SET UP.
--- NOTE | 2019-10-28 19:52 | NUR ---
PT LYING IN BED AWAKE ALERT AND ORIENTED x4. NO SIGNS OF DISTRESS NOTED AT THIS TIME. RESPIRATIONS EVEN AND UNLABORED. PT C/O OF ITCHING PRN BENADRYL ORDERED. CALL LIGHT AND OTHER PERSONAL ITEMS WITH IN REACH. BED IS IN LOWEST POSTION. SIDERAILS X2. PT ENCOURAGED TO CALL FOR HELP WHEN HETTING IN AND OUT OF BED ABND NEEDED. WILL CONTINUE TO MONITOR
[2019-10-28 20:00] VITALS: BP 132/64
[2019-10-29] VITALS: BP 120/54
--- NOTE | 2019-10-29 01:10 | NUR ---
I have reviewed this patient and I concur with the Shift Assessment completed by the Licensed Practical Nurse today this shift.
[2019-10-29 04:00] VITALS: BP 116/55
[2019-10-29 07:36] LABS: ALBUMIN 3.6 g/dL (3.4-5.0); BILIRUBIN - TOTAL 0.66 mg/dL (0.2-1.3); C-REACTIVE PROTEIN 1.3 mg/dL (0.0-0.9); CALCIUM 9.1 mg/dL (8.5-10.1); CARBON DIOXIDE 32.5 mmol/L (21.0-32.0); CREATININE - SERUM 1.1 mg/dL (0.6-1.3); POTASSIUM - SERUM 3.5 mmol/L (3.5-5.1); PROTEIN - SERUM 7.2 g/dL (6.4-8.2)
--- NOTE | 2019-10-29 08:12 | NUR ---
RESTING IN BED, NO DISTRESS NOTED, CONT TO MONITOR SUGARS AND CELLULITIS TO LEFT ANKLE, MEDICATE PRN
[2019-10-29 09:52] LABS: ERYTHROCYTE SEDIMENTATION RATE 3 mm/hr (0-20)
[2019-10-29 09:56] LABS: HEMATOCRIT 40.9 % (42.0-54.0); HEMOGLOBIN 13.2 g/dL (13.5-17.5); MCH 27.3 pg (26.0-34.0); MCHC 32.3 g/dL (31.0-37.0); MCV 84.5 fL (80.0-100.0); MEAN PLATELET VOLUME 11.5 fL (7.4-10.4); PLATELET COUNT 263 10x3/uL (130-400); RBC 4.84 10x6/uL (4.20-6.10); RDW 18.1 % (11.5-14.5); WBC 7.4 10x3/uL (4.8-10.8)
[2019-10-29 10:28] VITALS: BP 109/58
[2019-10-29 11:48] LABS: BASOPHILS 1 % (0-2); EOSINOPHILS 2 % (0-7); HYPOCHROMASIA OCC; LYMPHOCYTES 31 % (15-50); MONOCYTES 17 % (2-11); NEUTROPHILS 48 % (40-80); PLATELET ESTIMATE NORMAL; ROULEAUX OCC
[2019-10-29 11:57] VITALS: BP 104/57
[2019-10-29 14:23] VITALS: Ht 180.3 cm; Wt 128.4 kg
[2019-10-29 16:11] VITALS: BP 114/62
--- NOTE | 2019-10-29 19:38 | NUR ---
PT RESTING IN BED AWAKE ALERT AND ORIENTED x4. NO SIGNS OR SYMPTOMS OF DISTRESS NOTED. CALL LIGHT AND OTHER PERSONAL ITEMS WITH IN REACH. SIDERAILS x2. WILL CONTIUE TO MONITOR
[2019-10-29 20:00] VITALS: BP 116/62
[2019-10-30] VITALS: BP 110/59
--- NOTE | 2019-10-30 03:43 | NUR ---
I have reviewed this patient and I concur with the Shift Assessment completed by the Licensed Practical Nurse today this shift.
[2019-10-30 04:00] VITALS: BP 114/58
--- NOTE | 2019-10-30 04:29 | NUR ---
PT SITIING UP IN BED RESTING WITH EYES CLOSED EASILY AWAKEN WITH VOICE STIMULATION. PT HAS NO COMPLAINTS AT THIS TIME. CALL LIGHT AND OTHER PERSONAL ITEMS WITH N REACH. WILL CONTINUE TO MONITOR
[2019-10-30 07:13] LABS: CALCIUM 8.7 mg/dL (8.5-10.1); CARBON DIOXIDE 34.3 mmol/L (21.0-32.0); CREATININE - SERUM 1.1 mg/dL (0.6-1.3); POTASSIUM - SERUM 3.3 mmol/L (3.5-5.1)
[2019-10-30 07:51] LABS: BASOPHILS 0.8 % (0-2); EOSINOPHILS 4.3 % (0-7); HEMATOCRIT 41.1 % (42.0-54.0); IMMATURE GRANULOCYTES 0.3 % (0-5); LYMPHOCYTES 25.5 % (15-50); MCH 26.9 pg (26.0-34.0); MCHC 31.6 g/dL (31.0-37.0); MCV 84.9 fL (80.0-100.0); MEAN PLATELET VOLUME 11.2 fL (7.4-10.4); MONOCYTES 9.4 % (2-11); NEUTROPHILS 59.7 % (40-80); PLATELET COUNT 233 10x3/uL (130-400); RBC 4.84 10x6/uL (4.20-6.10); RDW 17.9 % (11.5-14.5); WBC 6.5 10x3/uL (4.8-10.8)
[2019-10-30] MEDS ORDERED: FEXOFENADINE HC60 MG PO (14:53)
[2019-10-30] MEDS ORDERED: DOXYCYCLINE HY100 M2 PO (14:54)
[2019-10-30] MEDS ORDERED: KENALOG 0.1 % 115 GM TOPICAL (15:02)
[2019-10-30 15:21] VITALS: BP 95/63
[2019-10-30 15:23] VITALS: BP 120/67
--- NOTE | 2019-10-30 16:02 | MORECARE ---
CASE MANAGEMENT DISCHARGE SUMMARY PATIENT: MEHUL FRAIRE SR UNIT: [id number] ADM DATE: 10/28/19 AGE: 63 : 55 SEX: M ROOM/BED: D.1835 AUTHOR: ASHLI FIELD PHYSICIAN: REFERRING PHYSICIAN: DEEJAY PANDA MD DATE OF SERVICE: 10/30/19 Discharge Plan Patient Name: MEHUL FRAIRE Facility: [facility]:[place] : 1955 Planned Disposition: Home Health Service Anticipated Discharge Date: Discharge Date: Expected LOS: Initial Reviewer: [email or web address] Initial Review Date: 10/28/2019 Generated: 10/30/19 5:01 pm Comments DCP- Discharge Planning Updated by [email or web address]: Alba Iraheta on 10/30/19 3:[address] Patient Name: MEHUL FRAIRE Admission Status: ER Accout number: [id number] Admission Date: 10-28-2019 : 1955 Admission Diagnosis:RASH AND OTHER NONSPECIFIC SKIN ERUPTION Attending: AMARILYS Current LOS: 2 Anticipated DC Date: Planned Disposition: Home Health Service Primary Insurance: [employer] Discharge Planning Comments: CM met with patient to complete initial dc planning assessment. CM educated patient on the CM role and verbal consent given by patient to complete assessment. CM verified patient's address, phone number, and emergency contact phone numbers. Patient lives at home with his , and has been independent of his ADL's- walks with a cane. At discharge patient plans to return home with [facility] and feels this is a safe discharge. SILVIA signed for [facility]. CM spoke with Raina Cortés [phone] and faxed clinicals. Patient denied known discharge needs at this time. Transportation provider at discharge will be his . CM will continue to follow and will assist as needed with dc plans/needs. Pain Management Physician: Alba Iraheta MSN,RN,CM External Providers External Provider: [facility] Next Contact Date: Service Request Date: Service Type: Resolution: Reviewer: Comments: Patient Name: MEHUL FRAIRE Page [phone] at 1602 All edits/amendments must be made on the electronic document DICTATION DATE: 10/30/191600 OIL FIELD TESTER: PETER 10/30/191600 RPT#: [id number] DC DATE: STATUS: ADM IN [facility] [address] [place] [address] END OF REPORT
--- NOTE | 2019-10-30 17:05 | NUR ---
PT DISCHARGED HOME VIA WHEELCHAIR WITH FAMILY. PIV REMOVED WITH CATHETER TIP FULLY INTACT. PT SIGNED PROPER DISCHARGE INSTRUCTIONS AND REMOVED ALL VALUABLES FROM THE ROOM.
--- NOTE | 2019-10-31 09:07 | MORECARE ---
CASE MANAGEMENT DISCHARGE SUMMARY PATIENT: MEHUL FRAIRE SR UNIT: [id number] ADM DATE: 10/28/19 AGE: 63 : 55 SEX: M ROOM/BED: D.6745 AUTHOR: ASHLI FIELD PHYSICIAN: REFERRING PHYSICIAN: DEEJAY PANDA MD DATE OF SERVICE: 10/31/19 Discharge Plan Patient Name: MEHUL FRAIRE Facility: [facility]:[place] : 1955 Planned Disposition: Home Health Service Anticipated Discharge Date: Discharge Date: 10/30/2019 Expected LOS: Initial Reviewer: [email or web address] Initial Review Date: 10/28/2019 Generated: 10/31/19 10:06 am Comments DCP- Discharge Planning Updated by [email or web address]: Alba Iraheta on 10/30/19 3:[address] Patient Name: MEHUL FRAIRE Admission Status: ER Accout number: [id number] Admission Date: 10-28-2019 : 1955 Admission Diagnosis:RASH AND OTHER NONSPECIFIC SKIN ERUPTION Attending: AMARILYS Current LOS: 2 Anticipated DC Date: Planned Disposition: Home Health Service Primary Insurance: [employer] Discharge Planning Comments: CM met with patient to complete initial dc planning assessment. CM educated patient on the CM role and verbal consent given by patient to complete assessment. CM verified patient's address, phone number, and emergency contact phone numbers. Patient lives at home with his , and has been independent of his ADL's- walks with a cane. At discharge patient plans to return home with [facility] and feels this is a safe discharge. SILVIA signed for [facility]. CM spoke with Raina Cortés [phone] and faxed clinicals. Patient denied known discharge needs at this time. Transportation provider at discharge will be his . CM will continue to follow and will assist as needed with dc plans/needs. Scientific Research Manager: Alba MRAROQUIN,RN,JHONY Last DP export: 10/30/19 3:02 p Patient Name: MEHUL FRAIRE Page [phone] at 0907 All edits/amendments must be made on the electronic document DICTATION DATE: 10/31/19905 SEMI CONDUCTOR ASSEMBLER: PETER 10/31/19905 RPT#: [id number] DC DATE:10/30/19 STATUS: DIS IN [facility] [address] [place] [address] END OF REPORT
== END 2019-10-30 17:05 | disposition home or self-care (01) | DRG 607 ==
LOC: D.ER 12:05 → D.M2 14:23 → D.SDCHOLD 10-29 11:47 → D.M2 10-29 11:51
PROVIDERS: Family Medicine; ADMIT Family Medicine; ATTEND Family Medicine
DX: R21 Rash and other nonspecific skin eruption (principal); I25.10 Atherosclerotic heart disease of native coronary artery without angina pectoris; J44.9 Chronic obstructive pulmonary disease, unspecified; I10 Essential (primary) hypertension; E66.9 Obesity, unspecified; Z68.39 Body mass index [BMI] 39.0-39.9, adult; E11.9 Type 2 diabetes mellitus without complications; G47.33 Obstructive sleep apnea (adult) (pediatric); I48.91 Unspecified atrial fibrillation

== ENCOUNTER → 2019-12-23 12:24 | Outpatient (CLI) | payer OTHER ==
[2019-10-29 14:23] VITALS: BMI 39.4
[~2019-12-23 12:24] MED LIST changes: +CBD OIL; +DOXYCYCLINE HY100 M2 PO; +FEXOFENADINE HC60 MG PO; +KENALOG 0.1 % 115 GM TOPICAL
== END | disposition home or self-care (01) ==
LOC: D.MRI 12:24
PROVIDERS: ATTEND Internal Medicine Cardiovascular Disease
DX: I67.9 Cerebrovascular disease, unspecified (principal)

== ENCOUNTER → 2020-02-12 09:42 | Outpatient (CLI) | payer OTHER ==
[2019-10-29 14:23] VITALS: BMI 39.4
== END | disposition home or self-care (01) ==
LOC: D.HCCECHO 09:42
PROVIDERS: ATTEND Internal Medicine Cardiovascular Disease
DX: I35.9 Nonrheumatic aortic valve disorder, unspecified (principal)

== ENCOUNTER 2020-07-11 20:21 | Emergency (ER) | payer OTHER ==
[~2020-07-11] VITALS: Ht 180.3 cm; Wt 120.5 kg
[2020-07-11 20:26] VITALS: Ht 180.3 cm; Wt 120.5 kg
[2020-07-11 20:58] LABS: BASOPHILS 0.3 % (0-2); EOSINOPHILS 2.8 % (0-7); HEMOGLOBIN 14.4 g/dL (13.5-17.5); IMMATURE GRANULOCYTES 0.2 % (0-5); LYMPHOCYTE ABS# 1.53 10x3/uL (1.32-3.57); LYMPHOCYTES 17.4 % (15-50); MCH 27.8 pg (26.0-34.0); MCHC 32.7 g/dL (31.0-37.0); MCV 84.9 fL (80.0-100.0); MONOCYTES 10.8 % (2-11); NEUTROPHILS 68.5 % (40-80); PLATELET COUNT 239 10x3/uL (130-400); RBC 5.18 10x6/uL (4.20-6.10); RDW 15.4 % (11.5-14.5); WBC 8.8 10x3/uL (4.8-10.8)
[2020-07-11 21:12] LABS: CALC OSMOLALITY 280 mosm/kg (275-300); CARBON DIOXIDE 31.7 mmol/L (21.0-32.0); CHLORIDE - SERUM 102 mmol/L (98-107); CREATININE - SERUM 1.1 mg/dL (0.6-1.3); GLUCOSE 100 mg/dL (74-106); POTASSIUM - SERUM 3.6 mmol/L (3.5-5.1); SODIUM 139 mmol/L (136-145); UREA NITROGEN 21 mg/dL (7-18); eGFR NON AFRICAN AMERICAN 71 mL/min (90-120)
[2020-07-11 21:36] LABS: ALBUMIN 3.9 g/dL (3.4-5.0); ALKALINE PHOSPHATASE 111 U/L (30-120); ALT (SGPT) 30 U/L (10-68); BILIRUBIN - TOTAL 0.37 mg/dL (0.2-1.3); CREATINE KINASE 306 UL (21-232); PROTEIN - SERUM 7.3 g/dL (6.4-8.2); TROPONIN-I 0.018 ng/mL (0.000-0.060)
[2020-07-11 21:39] LABS: CKMB 6.7 U/L (0.0-3.6)
[2020-07-11] MEDS ORDERED: BETAPACE 120 M120 MG PO (22:02)
[2020-07-11 22:19] VITALS: BP 124/63
== END 2020-07-11 22:20 | disposition home or self-care (01) ==
LOC: D.ER 20:21
PROVIDERS: Emergency Medicine
DX: I48.20 Chronic atrial fibrillation, unspecified (principal); R07.9 Chest pain, unspecified

== ENCOUNTER 2020-07-23 04:58 | Day surgery (SDC) | payer OTHER ==
[2020-07-20 13:12] LABS: BASOPHILS 0.7 % (0-2); EOSINOPHILS 4.2 % (0-7); HEMATOCRIT 42.1 % (42.0-54.0); IMMATURE GRANULOCYTES 0.2 % (0-5); LYMPHOCYTE ABS# 1.43 10x3/uL (1.32-3.57); LYMPHOCYTES 24.7 % (15-50); MCH 27.7 pg (26.0-34.0); MCHC 33.3 g/dL (31.0-37.0); MCV 83.2 fL (80.0-100.0); MEAN PLATELET VOLUME 9.9 fL (7.4-10.4); MONOCYTES 11.2 % (2-11); NEUTROPHIL ABS# 3.41 10x3/uL (1.78-5.38); PLATELET COUNT 222 10x3/uL (130-400); RBC 5.06 10x6/uL (4.20-6.10); RDW 15.6 % (11.5-14.5); WBC 5.8 10x3/uL (4.8-10.8)
[2020-07-20 13:16] LABS: CALC OSMOLALITY 276 mosm/kg (275-300); CALCIUM 8.9 mg/dL (8.5-10.1); CARBON DIOXIDE 32.4 mmol/L (21.0-32.0); CHLORIDE - SERUM 100 mmol/L (98-107); GLUCOSE 94 mg/dL (74-106); POTASSIUM - SERUM 3.3 mmol/L (3.5-5.1); SODIUM 137 mmol/L (136-145); UREA NITROGEN 22 mg/dL (7-18); eGFR NON AFRICAN AMERICAN 80 mL/min (90-120)
[2020-07-20 13:31] LABS: APTT 31.8 SECONDS (22.8-39.4); INR 1.48 (0.85-1.17); PROTIME 16.6 SECONDS (11.6-15.0)
[~2020-07-23] VITALS: Ht 177.8 cm; Wt 122.5 kg
[~2020-07-23 04:58] MED LIST changes: +ALBUTEROL SULF8.5 GM INH; +ANORO ELLIPTA1 EACH INH; +BETAPACE 120 M120 MG PO; +XARELTO20 MG PO
[2020-07-23 05:46] VITALS: BP 134/64; Ht 177.8 cm; Wt 122.5 kg
--- NOTE | 2020-07-23 08:03 | NUR ---
PATIENT STATES HE HAS DILAUDED AT HOME AND TAKES 4 MG AT A TIME. HE STATES HE WANTS ME TO TALK TO DR SHIPLEY TO SEE IF HE WILL GIVE HIM 2 MORE MG OF DILAUDED FOR THE PAIN. 2 MG OF DILAUDED IV HAS ALREADY BEEN GIVEN. PATIENT DESATS TO 80'S WHEN HE DOZES OFF. PATIENT OF 3 L NC.
--- NOTE | 2020-07-23 09:25 | NUR ---
PATIENT STATES PAIN IS BETTER AND WANTS TO GO HOME. LEFT AC PIV DC'D WITH TIP INTACT. DISCHARGE INSTRUCTIONS REVIEWED WITH PATIENT AND SPOUSE. PATIENT TRANSFERS INDEPENDENTLY TO WHEELCHAIR WITH STAND-BY ASSIST. 0940 DISCHARGED HOME VIA WHEELCHAIR TO PRIVATE VEHICLE
--- NOTE | 2020-07-23 15:32 | OP ---
PATIENT NAME: MEHUL FRAIRE SR MEDICAL RECORD: [id number] :55 LOCATION:D.OPS ADMISSION DATE: SURGEON: ESTRADA SHIPLEY DO DATE OF OPERATION: 07/23/2020 PROCEDURE PERFORMED: Removal of hardware, left ankle. PREOPERATIVE DIAGNOSIS: Painful hardware, left ankle. POSTOPERATIVE DIAGNOSIS: Painful hardware, left ankle. INDICATIONS: Mr. Fraire is a 64-year-old male who underwent left ankle open reduction internal fixation approximately a year ago. The hardware has been very painful for him. He had been having blistering rash from it and it kind of came and gone, he wanted it removed. I told him that I would remove it, but I could not guarantee that it would help his pain. He was okay with that and was aware of the risks including infection, bleeding, damage to nerves or vessels, need for further surgery, continued pain, loss of motion of the ankle, refracture, blood clots and even and he signed a consent. SURGEON: Estrada Shipley DO DESCRIPTION OF SURGERY: The patient was taken to the operative suite, laid in the supine position, given general anesthetic and LMA was placed. He was given 2 grams of Ancef preoperatively. The left lower extremity was then prepped and draped in sterile fashion. A timeout was performed. Everyone was in agreeance with the correct site, side, patient and procedure. I then began to make an incision over the previous incision of the lateral ankle. I made careful dissection down to the plate, cleaned it off to remove the screws and the ZipTight button and removed the plate. I then irrigated and Mukul White, certified surgical contact center assistant closed the site with 2-0 Vicryl in inverted interrupted fashion and ZipLine was placed on it. He was then dressed with Adaptic, 4 x 4s, ABD, Webril and then placed a posterior splint and secured with an Rogelio wrap. He was then awakened and taken to recovery in stable condition. BLOOD LOSS: Minimal. COMPLICATIONS: None. TRANSINT:[id number] Voice Confirmation ID: [id number] DOCUMENT ID: [id number] ESTRADA SHIPLEY DO at 153 CC: [id number] DICTATION DATE: 07/23/20916 LANDMAN: 07/23/20 1402 [facility] [address] [facility]
== END 2020-07-23 09:40 | disposition home or self-care (01) ==
LOC: D.OPS 04:58
PROVIDERS: Anesthesiology; ATTEND Orthopaedic Surgery
DX: Z97.8 Presence of other specified devices (principal); S82.92XD Unspecified fracture of left lower leg, subsequent encounter for closed fracture with routine healing; I10 Essential (primary) hypertension; I48.91 Unspecified atrial fibrillation

== ENCOUNTER 2020-07-24 19:06 | Inpatient (IN) | payer OTHER ==
[~2020-07-24] VITALS: Ht 177.8 cm; Wt 120.5 kg
[2020-07-24 19:25] LABS: BASOPHILS 0.4 % (0-2); HEMATOCRIT 44.1 % (42.0-54.0); HEMOGLOBIN 14.5 g/dL (13.5-17.5); IMMATURE GRANULOCYTES 0.3 % (0-5); LYMPHOCYTE ABS# 1.83 10x3/uL (1.32-3.57); LYMPHOCYTES 22.9 % (15-50); MCH 28.3 pg (26.0-34.0); MCHC 32.9 g/dL (31.0-37.0); MEAN PLATELET VOLUME 10.4 fL (7.4-10.4); MONOCYTES 9.3 % (2-11); NEUTROPHIL ABS# 5.13 10x3/uL (1.78-5.38); NEUTROPHILS 64.1 % (40-80); PLATELET COUNT 240 10x3/uL (130-400); RBC 5.13 10x6/uL (4.20-6.10); RDW 15.9 % (11.5-14.5)
[2020-07-24 19:33] LABS: INR 1.37 (0.85-1.17); PROTIME 15.7 SECONDS (11.6-15.0)
[2020-07-24 19:34] LABS: APTT 40.2 SECONDS (22.8-39.4)
[2020-07-24 19:35] LABS: D-DIMER-QUANTITATIVE < 0.27 ug/mLFEU (0.20-0.54)
[2020-07-24 19:44] LABS: CALC OSMOLALITY 277 mosm/kg (275-300); CALCIUM 8.9 mg/dL (8.5-10.1); CARBON DIOXIDE 29.2 mmol/L (21.0-32.0); CHLORIDE - SERUM 102 mmol/L (98-107); CREATININE - SERUM 1.2 mg/dL (0.6-1.3); GLUCOSE 73 mg/dL (74-106); POTASSIUM - SERUM 3.4 mmol/L (3.5-5.1); SODIUM 139 mmol/L (136-145); UREA NITROGEN 15 mg/dL (7-18); eGFR NON AFRICAN AMERICAN 65 mL/min (90-120)
[2020-07-24 19:59] LABS: ALBUMIN 3.9 g/dL (3.4-5.0); ALKALINE PHOSPHATASE 81 U/L (30-120); ALT (SGPT) 30 U/L (10-68); BILIRUBIN - TOTAL 0.39 mg/dL (0.2-1.3); CKMB 2.6 U/L (0.0-3.6); CREATINE KINASE 122 UL (21-232); MAGNESIUM - SERUM 1.8 mg/dL (1.8-2.4); PROTEIN - SERUM 7.5 g/dL (6.4-8.2); THYROID STIMULATING HORMONE 0.99 uIU/mL (0.36-3.74)
[2020-07-24 20:00] LABS: TROPONIN-I < 0.017 ng/mL (0.000-0.060)
--- NOTE | 2020-07-24 21:04 | NUR ---
CARDIZEM DRIP RATE CHANGED TO 5MG/HR PER Maco RIVAS APN.
[2020-07-24 22:35] VITALS: BP 74/50
--- NOTE | 2020-07-24 22:38 | NUR ---
REPORT RECIEVED FROM LES IN ER.
[2020-07-24 22:42] VITALS: BP 85/51
--- NOTE | 2020-07-24 22:52 | NUR ---
PATIENT'S BLOOD PRESSURE DROPPED AFTER APPLICATION OF NITRO PASTE. NITRO PASTE REMOVED. PAGED JENIFER TO NOTIFY.
[2020-07-24 23:06] VITALS: BP 90/53
[2020-07-24 23:55] VITALS: BP 111/66
[2020-07-25 00:50] VITALS: BP 118/64
[2020-07-25 01:13] LABS: CREATINE KINASE 100 UL (21-232); TROPONIN-I < 0.017 ng/mL (0.000-0.060)
[2020-07-25 03:12] VITALS: BP 117/86; Ht 177.8 cm; Wt 120.5 kg
[2020-07-25 03:34] VITALS: BP 117/86
--- NOTE | 2020-07-25 03:59 | NUR ---
PT WAS BROUGHT TO FLOOR BY WHEELCHAIR AT 0230. NURSE ACCOMPANYING HIM COULD PROVIDE NO FURTHER REPORT TO WHY IT TOOK 4 HOURS FOR HIM TO COME FROM ER TO ROOM. PT'S PRIMARY ER NURSE, LES, HAD LEFT AND DID NOT UPDATE THIS NURSE TO THE REASON PT WAS KEPT FOR AN EXTENDED AMOUNT OF TIME IN THE ER. CALLED AND SPOKE WITH ER CHARGE/CHLOÉ AND SHE REVIEWED PT'S CHART AND UPDATED THIS NURSE ON WHY PATIENT WAS KEPT IN ER FOR AN ADDITIONAL 4 HOURS. PT ARRIVED ALERT, ORIENTED AND CONVERSTING APPROPRIATELY. VITAL SIGNS ARE STABLE. ASSISTED INTO BED. HE CANNOT WEIGHT BEAR ON LEFT LEG. IV SITED TO LEFT A/C. NONLABORED RESPIRATIONS ON ROOM AIR. TELEMETRY INITIATED AND PT IS 54 SINUS GENE. ADMISSION ASSESSMENT AND HISTORY COMPLETED. HOME MEDS REVIEWED. PT HAS AN SEAN WRAP ON HIS LEFT LOWER LEG THAT WAS PLACED THERE BY DR SHIPLEY ON SUNDAY AFTER A SURGERY TO REMOVED ALL HIS HARDWARE FROM A PREVIOUS SURGERY. PT STATES THE DRESSING IS TO NOT BE REMOVED AND HE IS TO NOT BEAR WEIGHT ON IT. HE IS DUE BACK TO SEE DR SHIPLEY AT THE BEGINNING OF AUGUST. PT DENIES CHEST PAIN AT THIS TIME. TELLS NURSE HE CAN FEEL THE DIFFERENCE WHEN HE IS IN FIB AND HE KNOWS HE IS NOT AT THIS TIME. REVIEWED PLAN OF CARE. PT TO BE NPO UNTIL SEEN BY CNC FIELD SERVICE ENGINEER IN AM. CALL LIGHT IN REACH. URINAL AT BEDSIDE.
[2020-07-25 05:57] LABS: BASOPHILS 0.3 % (0-2); EOSINOPHILS 4.5 % (0-7); HEMATOCRIT 40.6 % (42.0-54.0); HEMOGLOBIN 13.1 g/dL (13.5-17.5); IMMATURE GRANULOCYTES 0.1 % (0-5); LYMPHOCYTE ABS# 1.76 10x3/uL (1.32-3.57); LYMPHOCYTES 26.2 % (15-50); MCH 27.6 pg (26.0-34.0); MCHC 32.3 g/dL (31.0-37.0); MCV 85.7 fL (80.0-100.0); MEAN PLATELET VOLUME 10.8 fL (7.4-10.4); MONOCYTES 10.4 % (2-11); NEUTROPHIL ABS# 3.92 10x3/uL (1.78-5.38); NEUTROPHILS 58.5 % (40-80); PLATELET COUNT 221 10x3/uL (130-400); RBC 4.74 10x6/uL (4.20-6.10); RDW 15.8 % (11.5-14.5); WBC 6.7 10x3/uL (4.8-10.8)
--- NOTE | 2020-07-25 05:57 | NUR ---
RESTING WITH NO DISTRESS. 61 SR.
[2020-07-25 06:32] LABS: ALBUMIN 3.4 g/dL (3.4-5.0); ALKALINE PHOSPHATASE 62 U/L (30-120); BILIRUBIN - TOTAL 0.51 mg/dL (0.2-1.3); CALC OSMOLALITY 278 mosm/kg (275-300); CALCIUM 8.6 mg/dL (8.5-10.1); CARBON DIOXIDE 32.7 mmol/L (21.0-32.0); CHLORIDE - SERUM 105 mmol/L (98-107); CHOL - HDL RATIO 2.4 ratio (2.3-4.9); CHOLESTEROL, TOTAL 115 mg/dL (0-200); CKMB 1.9 U/L (0.0-3.6); CREATINE KINASE 98 UL (21-232); CREATININE - SERUM 0.9 mg/dL (0.6-1.3); GLUCOSE 78 mg/dL (74-106); HDL CHOLESTEROL 48 mg/dL (32-96); LDL CHOLESTEROL 56 mg/dL (0-100); LDL-HDL RATIO 1.2 ratio (1.5-3.5); MAGNESIUM - SERUM 2.1 mg/dL (1.8-2.4); PHOSPHOROUS 3.4 mg/dL (2.5-4.9); POTASSIUM - SERUM 3.5 mmol/L (3.5-5.1); PROTEIN - SERUM 6.5 g/dL (6.4-8.2); SODIUM 140 mmol/L (136-145); TRIGLYCERIDE 58 mg/dL (30-200); TROPONIN-I < 0.017 ng/mL (0.000-0.060); UREA NITROGEN 15 mg/dL (7-18); eGFR NON AFRICAN AMERICAN 90 mL/min (90-120)
[2020-07-25 06:43] LABS: ALT (SGPT) 22 U/L (10-68)
[2020-07-25 09:28] VITALS: BP 120/59
--- NOTE | 2020-07-25 10:03 | NUR ---
PT AWAKE AND ORIENTED, LYING IN BED. C/O PAIN IN L LEG THAT WAS OPERATED ON YESTERDAY BY DR. SHIPLEY. CONSULTED AND PSOKE WITH DR. SHIPLEY, DR STATES HE DOES NOT NEED TO SEE PT AND IS CLEAR TO D/C FROM HIS STANDPOINT. OBTAINED ORDER FOR PO DILAUDID FROM DR. SHIPLEY WHICH IS WHAT HE HAD PRESCRIBED PT AFTER SURGER ON SUNDAY. ADMINISTERED MEDICAITONS, PT TOOK ALL MEDS WITHOUT NOTED/REPORTED COMPLICATIONS. CL IN REACH, SRX2. NO FAMILY AT BEDSIDE.
--- NOTE | 2020-07-25 10:37 | CN ---
PATIENT NAME:MEHUL FRAIRE SR MEDICAL RECORD: [id number] : 55 LOCATION:D.M2 D.2116 ADMIT DATE: 07/24/20 ACCOUNT: [id number] CONSULTING PHYSICIAN: KELL SHULTZ MD REFERRING PHYSICIAN: KULDEEP GARDNER MD DATE OF CONSULTATION: 07/25/2020 HISTORY OF PRESENT ILLNESS: The patient is a 64-year-old male with history of paroxysmal atrial fibrillation, hypertension, who is status post left ankle orthopedic surgery. The patient had an episode of atrial fibrillation with rapid ventricular response. I asked to evaluate from a cardiovascular standpoint. PAST MEDICAL HISTORY: Significant for; 1. Paroxysmal atrial fibrillation -- currently in sinus rhythm. 2. Postop orthopedic ankle surgery. 3. Hypertension. 4. Diabetes. LABORATORY DATA: White blood cell count 6.7, hemoglobin and hematocrit 13.1 and 40.6, platelet count is 221. Sodium 140, potassium 3.5, BUN and creatinine 15 and 0.9. Troponin 0.017 (negative). HDL 48, LDL 56. BUN 15, creatinine 1.2. TSH 0.99 (within normal limits). PHYSICAL EXAMINATION: GENERAL: Pleasant white male, in no apparent distress. VITAL SIGNS: Blood pressure 118/64, pulse 58 (regular). HEENT: Sclerae are clear; conjunctivae pink. NECK: Supple; no appreciated JVD. HEART: Regular rhythm and rate without appreciated murmurs, gallops or rubs. LUNGS: Clear bilaterally. ABDOMEN: Benign. EXTREMITIES: Left lower extremity cast, otherwise unremarkable. NEUROLOGIC: Nonfocal. MEDICATIONS: 1. Sotalol 120 mg b.i.d. 2. Protonix 40 mg daily. 3. Spironolactone 25 mg daily. 4. Potassium 20 mEq daily. 5. Losartan 25 mg daily. 6. Lyrica 150 mg t.i.d. 7. Metformin 1000 mg b.i.d. 8. Xarelto 20 mg daily. ASSESSMENT AND PLAN: 1. Paroxysmal atrial fibrillation -- currently in sinus rhythm. 2. Hypertension. 3. Diabetes mellitus. 4. Postop orthopedic surgery. PLAN: Continue current medical management at this time. No further cardiac workup indicated at this time. Resume the patient's home cardiac medication. The patient may be discharged to outpatient followup in cardiovascular clinic. CONSULT REPORT [id number] MEHUL FRAIRE SR EKG initially atrial fibrillation with ventricular rate is 130; EKG repeat sinus bradycardia at 55 beats per minute. Telemetry: Sinus rhythm, 56 beats per minute. TRANSINT:[id number] Voice Confirmation ID: [id number] DOCUMENT ID: [id number] KELL SHULTZ MD at 1037 CC: [id number] DICTATION DATE: 07/25/20926 BRUSHING OPERATOR: 07/25/20 1028 ADM IN [place] [address] [place] [address]
--- NOTE | 2020-07-25 12:39 | NUR ---
PT ESCORTED OUT VIA WHEELCHIAR TO POV. IV OUT TIP INTACT. TELEMETRY GIVEN TO TELE MONITOR STATION.
--- NOTE | 2020-07-25 19:38 | MORECARE ---
CASE MANAGEMENT DISCHARGE SUMMARY PATIENT: MEHUL FRAIRE SR UNIT: [id number] ADM DATE: 07/24/20 AGE: 64 : 55 SEX: M [facility] AUTHOR: RASHIDA,DOC PHYSICIAN: REFERRING PHYSICIAN: KULDEEP GARDNER MD DATE OF SERVICE: 07/25/20 Case Management Discharge Planning Summary DCP REVIEW SUMMARY ANTICIPATED D/C DATE: 07/25/2020 EXPECTED LOS : 1 CASE STATUS: DCP Initiated INITIAL REVIEW: 07/24/2020 INITIAL REVIEWER: Roni Morton FINAL DISCHARGE DISPOSITION: : FINAL REVIEWER: FINAL REVIEW DATE: DCP Focus Questions & Answers - Added on: QUESTION: ANSWER : PATIENT: MEHUL FRAIRE ENCOUNTER: [id number] MEDICAL RECORD#: [id number] ADMISSION DATE: 07/24/2020 DISCHARGE DATE: 07/25/2020 ATTENDING MD: KULDEEP HILL : AGE: 64 MARITAL STATUS: M DC PLAN ID: [id number] FACILITY: [facility] PRINTED ON: 07/25/20 19:38 CT All edits/amendments must be made on the electronic document DICTATION DATE: 07/25/201937 FLOOR FINISHER: PETER 07/25/201937 RPT#: [id number] DC DATE:07/25/20 STATUS: DIS IN [facility] [address] [place] [address] END OF REPORT
--- NOTE | 2020-07-25 19:48 | MORECARE ---
CASE MANAGEMENT DISCHARGE SUMMARY PATIENT: MEHUL FRAIRE UNIT: [id number] ADM DATE: 07/24/20 AGE: 64 : 55 SEX: M ROOM/BED: D.2116 AUTHOR: ASHLI FIELD PHYSICIAN: REFERRING PHYSICIAN: KULDEEP GARDNER MD DATE OF SERVICE: 07/25/20 Case Management Discharge Planning Summary COMMENTS ENTERED DATE: 07/25/20 19:45 CT COMMENT TYPE: Discharge Planning REVIEWER: Roni Morton CM met with patient to complete DC plan and to evaluate needs. Patient lives independently with his spouse, Isi Fraire ([phone]). At discharge, the patient plans to return home and feels this is a safe discharge. Patient stated that he uses [facility] as his pharmacy and Dr. Yuen is his primary care physician. Patient denies use of mobility equipment except for knee scooter and walker. Patient stated that he has 1 steep step to enter his home but he can manage the step adequately. CM discussed availability of home health, rehab services, and medical equipment. Patient declined HHS, SNF, IPR, and DME. Patient voiced no other needs at this time and is satisfied with DC plan. Transportation provider at discharge will be with his spouse, Isi. CM will continue to follow and will assist as needed with dc plans/needs. DCP REVIEW SUMMARY ANTICIPATED D/C DATE: 07/25/2020 EXPECTED LOS : 1 CASE STATUS: DCP Initiated INITIAL REVIEW: 07/24/2020 INITIAL REVIEWER: Roni Morton FINAL DISCHARGE DISPOSITION: : FINAL REVIEWER: FINAL REVIEW DATE: MNP Focus Questions & Answers DCP REV -DCP Review Added on: 07/25/20 7:44 pm QUESTION: ANSWER DCP Evaluation Patient gives permission to discuss discharge plans with: (name, relationship and number) : ISI FRAIRE, SPOUSE, Physical Status: : Independent with ADL's Baseline cognitive status: : *Oriented to person, place, situation, time and present Patient's ability to cope with chronic illness : d. No chronic illness Living Arrangements: : Home with Spouse/Significant Other Medication Management: : Patient states can afford medications Medication Management: : Patient states can read and understand medication labels Pharmacy name(s): : [facility] Does Patient have transportation to get home and to follow-up medical appointments when discharged from the hospital? : Yes Does the patient have electricity at home? : Yes Does the patient have running water in their house? : Yes Equipment in use: : Walker - Rolling Other Equipment comments: : Knee Scooter Mental health screen: : No mental health history Patient's current cognitive status: : *Oriented to person, place, situation, time and present Functional screen assessment: : Basic needs can adequately be met by self Functional screen assessment: : No issues identified Patient with capacity for self-care or can be cared for in same environment as prior to hospitalization? : Yes Does the patient have the ability to pay for or attain post discharge needs / services? : Yes Is there a likelihood that the patient will require additional services to return to the preadmission environment? : No Patient and/or caregiver agree upon recommended discharge plan? : Yes Equipment needed for post hospitalization: : None Physical environment modification needed / anticipated for discharge: : No Would patient like to participate in any Care Coordination programs (if applicable): : Not applicable DCP Re-evaluation Would patient like to participate in any Care Coordination programs (if applicable): : Not applicable PATIENT: MEHUL FRAIRE ENCOUNTER: [id number] MEDICAL RECORD#: [id number] ADMISSION DATE: 07/24/2020 DISCHARGE DATE: 07/25/2020 ATTENDING MD: KULDEEP HILL : AGE: 64 MARITAL STATUS: M DC PLAN ID: [id number] FACILITY: [facility] PRINTED ON: 07/25/20 19:48 CT All edits/amendments must be made on the electronic document DICTATION DATE: 07/25/201947 PITCH WORKER: PETER 07/25/201947 RPT#: [id number] DC DATE:07/25/20 STATUS: DIS IN [facility] [address] [place] [address] END OF REPORT
--- NOTE | 2020-07-27 09:01 | MORECARE ---
CASE MANAGEMENT DISCHARGE SUMMARY PATIENT: MEHUL FRAIRE UNIT: [id number] ADM DATE: 07/24/20 AGE: 64 : 55 SEX: M ROOM/BED: D.2116 AUTHOR: ASHLI FIELD PHYSICIAN: REFERRING PHYSICIAN: KULDEEP GARDNER MD DATE OF SERVICE: 07/27/20 Case Management Discharge Planning Summary COMMENTS ENTERED DATE: 07/25/20 19:45 CT COMMENT TYPE: Discharge Planning REVIEWER: Roni Morton CM met with patient to complete DC plan and to evaluate needs. Patient lives independently with his spouse, Isi Fraire ([phone]). At discharge, the patient plans to return home and feels this is a safe discharge. Patient stated that he uses [facility] as his pharmacy and Dr. Yuen is his primary care physician. Patient denies use of mobility equipment except for knee scooter and walker. Patient stated that he has 1 steep step to enter his home but he can manage the step adequately. CM discussed availability of home health, rehab services, and medical equipment. Patient declined HHS, SNF, IPR, and DME. Patient voiced no other needs at this time and is satisfied with DC plan. Transportation provider at discharge will be with his spouse, Isi. CM will continue to follow and will assist as needed with dc plans/needs. DCP REVIEW SUMMARY ANTICIPATED D/C DATE: 07/25/2020 EXPECTED LOS : 1 CASE STATUS: DCP Initiated INITIAL REVIEW: 07/24/2020 INITIAL REVIEWER: Roni Morton FINAL DISCHARGE DISPOSITION: : FINAL REVIEWER: FINAL REVIEW DATE: NHP Focus Questions & Answers DCP REV -DCP Review Added on: 07/25/20 7:44 pm QUESTION: ANSWER DCP Evaluation Patient gives permission to discuss discharge plans with: (name, relationship and number) : ISI FRAIRE, SPOUSE, Physical Status: : Independent with ADL's Baseline cognitive status: : *Oriented to person, place, situation, time and present Patient's ability to cope with chronic illness : d. No chronic illness Living Arrangements: : Home with Spouse/Significant Other Medication Management: : Patient states can afford medications Medication Management: : Patient states can read and understand medication labels Pharmacy name(s): : [facility] Does Patient have transportation to get home and to follow-up medical appointments when discharged from the hospital? : Yes Does the patient have electricity at home? : Yes Does the patient have running water in their house? : Yes Equipment in use: : Walker - Rolling Other Equipment comments: : Knee Scooter Mental health screen: : No mental health history Patient's current cognitive status: : *Oriented to person, place, situation, time and present Functional screen assessment: : Basic needs can adequately be met by self Functional screen assessment: : No issues identified Patient with capacity for self-care or can be cared for in same environment as prior to hospitalization? : Yes Does the patient have the ability to pay for or attain post discharge needs / services? : Yes Is there a likelihood that the patient will require additional services to return to the preadmission environment? : No Patient and/or caregiver agree upon recommended discharge plan? : Yes Equipment needed for post hospitalization: : None Physical environment modification needed / anticipated for discharge: : No Would patient like to participate in any Care Coordination programs (if applicable): : Not applicable DCP Re-evaluation Would patient like to participate in any Care Coordination programs (if applicable): : Not applicable PATIENT: MEHUL FRAIRE ENCOUNTER: [id number] MEDICAL RECORD#: [id number] ADMISSION DATE: 07/24/2020 DISCHARGE DATE: 07/25/2020 ATTENDING MD: KULDEEP HILL : AGE: 64 MARITAL STATUS: M DC PLAN ID: [id number] FACILITY: [facility] PRINTED ON: 07/27/20 9:01 CT All edits/amendments must be made on the electronic document DICTATION DATE: 07/27/20900 RAMP SERVICE AGENT: PETER 07/27/20900 RPT#: [id number] DC DATE:07/25/20 STATUS: DIS IN [facility] [address] [place] [address] END OF REPORT
== END 2020-07-25 12:40 | disposition home or self-care (01) | DRG 201 ==
LOC: D.ER 19:06 → D.M2 20:34 → D.EDHOLD 07-25 00:30 → D.M2 07-25 02:13
PROVIDERS: Family Medicine; ADMIT Emergency Medicine; ATTEND Emergency Medicine
DX: I48.20 Chronic atrial fibrillation, unspecified (principal); I10 Essential (primary) hypertension; Z98.890 Other specified postprocedural states; Z79.01 Long term (current) use of anticoagulants; E78.5 Hyperlipidemia, unspecified; E11.40 Type 2 diabetes mellitus with diabetic neuropathy, unspecified

== ENCOUNTER 2020-08-17 21:31 | Observation (INO) | payer OTHER ==
[~2020-08-17] VITALS: Ht 177.8 cm; Wt 120.2 kg
[2020-08-17 22:24] LABS: BASOPHILS 0.8 % (0-2); EOSINOPHILS 3.2 % (0-7); HEMATOCRIT 42.7 % (42.0-54.0); HEMOGLOBIN 13.9 g/dL (13.5-17.5); IMMATURE GRANULOCYTES 0.1 % (0-5); LYMPHOCYTE ABS# 1.53 10x3/uL (1.32-3.57); LYMPHOCYTES 19.5 % (15-50); MCH 27.4 pg (26.0-34.0); MCHC 32.6 g/dL (31.0-37.0); MCV 84.1 fL (80.0-100.0); MEAN PLATELET VOLUME 11.1 fL (7.4-10.4); MONOCYTES 10.2 % (2-11); NEUTROPHIL ABS# 5.18 10x3/uL (1.78-5.38); NEUTROPHILS 66.2 % (40-80); PLATELET COUNT 231 10x3/uL (130-400); RBC 5.08 10x6/uL (4.20-6.10); RDW 15.9 % (11.5-14.5); WBC 7.8 10x3/uL (4.8-10.8)
[2020-08-17 22:33] LABS: APTT 38.5 SECONDS (22.8-39.4); CALC OSMOLALITY 280 mosm/kg (275-300); CALCIUM 9.1 mg/dL (8.5-10.1); CARBON DIOXIDE 26.8 mmol/L (21.0-32.0); CHLORIDE - SERUM 100 mmol/L (98-107); CREATININE - SERUM 1.2 mg/dL (0.6-1.3); GLUCOSE 74 mg/dL (74-106); INR 1.3 (0.85-1.17); POTASSIUM - SERUM 3.3 mmol/L (3.5-5.1); SODIUM 139 mmol/L (136-145); UREA NITROGEN 23 mg/dL (7-18); eGFR NON AFRICAN AMERICAN 65 mL/min (90-120)
--- NOTE | 2020-08-17 22:42 | NUR ---
PT CONVERTED TO NS AT THIS TIME. DENIES CP C/O ANDERSON. SEE EMAR.
[2020-08-17 22:46] LABS: ALKALINE PHOSPHATASE 122 U/L (30-120); ALT (SGPT) 25 U/L (10-68); BILIRUBIN - TOTAL 0.46 mg/dL (0.2-1.3); PRO BNP 48 pg/mL (0-125); PROTEIN - SERUM 7.6 g/dL (6.4-8.2); TROPONIN-I < 0.017 ng/mL (0.000-0.060)
[2020-08-17 22:56] VITALS: BP 112/68
[2020-08-18 01:05] LABS: BILIRUBIN NEGATIVE (NEGATIVE); KETONE NEGATIVE (NEGATIVE); NITRITE NEGATIVE (NEGATIVE); UROBILINOGEN NORMAL mg/dL (< 2)
[2020-08-18 01:07] LABS: UDS - AMPHET NEGATIVE QUAL (NEGATIVE); UDS - BARB NEGATIVE QUAL (NEGATIVE); UDS - BENZO NEGATIVE QUAL (NEGATIVE); UDS - COCAINE NEGATIVE QUAL (NEGATIVE); UDS - OPIATE NEGATIVE QUAL (NEGATIVE); UDS - PCP NEGATIVE QUAL (NEGATIVE); UDS - THC POSITIVE QUAL (NEGATIVE)
--- NOTE | 2020-08-18 01:07 | NUR ---
PT HR IS 50, CARDIZEM TURNED OFF PER DR MENENDEZ
[2020-08-18] MEDS ORDERED: NORVASC5 MG PO (01:59)
[2020-08-18] MEDS ORDERED: ISOSORBIDE DINI10 MG PO (02:00)
[2020-08-18] MEDS ORDERED: ALDACTONE25 MG PO (02:02)
[2020-08-18 02:53] VITALS: BP 98/53; BMI 38.1
--- NOTE | 2020-08-18 03:20 | NUR ---
RECEIVED PT FROM ER PER WHEELCHAIR. BROUGHT IN FOR AFIB W/ RVR. WAS ON CARDIZEM DRIP IN ER BUT HAS BEEN STOPPED PRIOR TO ARRIVAL TO ROOM 2123. TELEMETERY ON READS SINUS GENE @49. ON ROOM AIR, A/O X4. IV ACCESS TO LEFT LATERAL AC. C/O SEVERE NEUROPATHY TO BLE. STERI STRIPS TO LEFT LEATERAL ANKLE(HAD RECENT SURGERY) PT VERY PLEASANT/COOPERATIVE. NO NEEDS VOICED. WILL CONTINUE TO MONITOR.
[2020-08-18 07:25] LABS: BASOPHILS 0.7 % (0-2); EOSINOPHILS 4.7 % (0-7); HEMOGLOBIN 12.6 g/dL (13.5-17.5); IMMATURE GRANULOCYTES 0.4 % (0-5); LYMPHOCYTE ABS# 1.46 10x3/uL (1.32-3.57); LYMPHOCYTES 26.4 % (15-50); MCH 27.3 pg (26.0-34.0); MCHC 32.3 g/dL (31.0-37.0); MCV 84.6 fL (80.0-100.0); MONOCYTES 15.2 % (2-11); NEUTROPHIL ABS# 2.91 10x3/uL (1.78-5.38); NEUTROPHILS 52.6 % (40-80); PLATELET COUNT 210 10x3/uL (130-400); RBC 4.61 10x6/uL (4.20-6.10); RDW 16.2 % (11.5-14.5)
[2020-08-18 07:26] LABS: WBC 5.5 10x3/uL (4.8-10.8)
[2020-08-18 07:46] LABS: ALBUMIN 3.4 g/dL (3.4-5.0); ALKALINE PHOSPHATASE 79 U/L (30-120); ALT (SGPT) 25 U/L (10-68); CALC OSMOLALITY 282 mosm/kg (275-300); CALCIUM 8.9 mg/dL (8.5-10.1); CARBON DIOXIDE 29.3 mmol/L (21.0-32.0); CHLORIDE - SERUM 104 mmol/L (98-107); CREATININE - SERUM 0.9 mg/dL (0.6-1.3); GLUCOSE 89 mg/dL (74-106); MAGNESIUM - SERUM 2.2 mg/dL (1.8-2.4); PHOSPHOROUS 4.1 mg/dL (2.5-4.9); POTASSIUM - SERUM 3.5 mmol/L (3.5-5.1); PROTEIN - SERUM 6.8 g/dL (6.4-8.2); SODIUM 141 mmol/L (136-145); UREA NITROGEN 22 mg/dL (7-18); eGFR NON AFRICAN AMERICAN 90 mL/min (90-120)
[2020-08-18 08:04] VITALS: BP 128/61
[2020-08-18 11:47] VITALS: BP 128/61
[2020-08-18 12:53] VITALS: Ht 177.8 cm; Wt 120.2 kg
--- NOTE | 2020-08-18 13:35 | NUR ---
DISCHARGE INSTRUCTIONS PROVIDED TO PATIENT. AT BEDSIDE. PATIENT VERBALIZED UNDERSTANDING. DISCHARGED VIA WHEELCHAIR WITH .
== END 2020-08-18 13:36 | disposition home or self-care (01) ==
LOC: D.ER 21:31 → D.M2 23:23 → OBSVTIME 23:24 → D.M2 08-18 13:36
PROVIDERS: Family Medicine; ADMIT Family Medicine; ATTEND Family Medicine
DX: I48.20 Chronic atrial fibrillation, unspecified (principal); E87.6 Hypokalemia; I10 Essential (primary) hypertension; E78.5 Hyperlipidemia, unspecified; J44.9 Chronic obstructive pulmonary disease, unspecified; G47.33 Obstructive sleep apnea (adult) (pediatric); E11.40 Type 2 diabetes mellitus with diabetic neuropathy, unspecified; M19.90 Unspecified osteoarthritis, unspecified site; Z79.4 Long term (current) use of insulin; I42.9 Cardiomyopathy, unspecified

== ENCOUNTER 2020-08-30 14:10 | Inpatient (IN) | payer OTHER ==
[2020-08-30] VITALS (21 sets, daily range): BP systolic 95–139; BP diastolic 56–89; Ht 177.8 cm; Wt 124.2 kg
[~2020-08-30] VITALS: Ht 177.8 cm; Wt 124.2 kg
[~2020-08-30 14:10] MED LIST changes: +ISOSORBIDE DINI10 MG PO; +NORVASC5 MG PO
--- NOTE | 2020-08-30 14:30 | NUR ---
BLOOD DRAWN FOR LAB WITH IV START. URINE ALSO COLLECTED. ALL GIVEN TO OPERATIONS AND MAINTENANCE TECHNICIAN.
[2020-08-30 14:54] LABS: APTT 45.1 SECONDS (22.8-39.4); INR 1.52 (0.85-1.17)
--- NOTE | 2020-08-30 14:55 | NUR ---
IV CARDIAZEM 20MG GIVEN. HR 144 INITIALLY, NOW 92-101.
[2020-08-30 14:58] LABS: BASOPHILS 0.5 % (0-2); CALC OSMOLALITY 284 mosm/kg (275-300); CALCIUM 9.7 mg/dL (8.5-10.1); CARBON DIOXIDE 29.9 mmol/L (21.0-32.0); CHLORIDE - SERUM 101 mmol/L (98-107); GLUCOSE 103 mg/dL (74-106); HEMATOCRIT 44.1 % (42.0-54.0); HEMOGLOBIN 14.7 g/dL (13.5-17.5); IMMATURE GRANULOCYTES 0.3 % (0-5); LYMPHOCYTE ABS# 1.96 10x3/uL (1.32-3.57); LYMPHOCYTES 26.3 % (15-50); MCH 27.5 pg (26.0-34.0); MCHC 33.3 g/dL (31.0-37.0); MCV 82.4 fL (80.0-100.0); MEAN PLATELET VOLUME 11.1 fL (7.4-10.4); MONOCYTES 10.1 % (2-11); NEUTROPHIL ABS# 4.45 10x3/uL (1.78-5.38); NEUTROPHILS 59.8 % (40-80); POTASSIUM - SERUM 3.4 mmol/L (3.5-5.1); RBC 5.35 10x6/uL (4.20-6.10); RDW 15.9 % (11.5-14.5); SODIUM 142 mmol/L (136-145); UREA NITROGEN 19 mg/dL (7-18); WBC 7.4 10x3/uL (4.8-10.8); eGFR NON AFRICAN AMERICAN 80 mL/min (90-120)
[2020-08-30 15:13] LABS: PLATELET COUNT 272 10x3/uL (130-400)
[2020-08-30 15:14] LABS: BILIRUBIN NEGATIVE (NEGATIVE); KETONE NEGATIVE (NEGATIVE); NITRITE NEGATIVE (NEGATIVE); UROBILINOGEN NORMAL mg/dL (< 2); WHITE CELLS - URINE OCC HPF (0-1)
[2020-08-30 15:15] LABS: ALBUMIN 4.5 g/dL (3.4-5.0); ALKALINE PHOSPHATASE 116 U/L (30-120); ALT (SGPT) 34 U/L (10-68); BILIRUBIN - TOTAL 0.56 mg/dL (0.2-1.3); CKMB 5.5 U/L (0.0-3.6); CREATINE KINASE 281 UL (21-232); MAGNESIUM - SERUM 2.1 mg/dL (1.8-2.4); PROTEIN - SERUM 8.1 g/dL (6.4-8.2); TROPONIN-I < 0.017 ng/mL (0.000-0.060)
--- NOTE | 2020-08-30 19:25 | NUR ---
PT HEART RATE CAF 70S-80S, DROPPED CARDIZEM GTT TO 5.
--- NOTE | 2020-08-30 19:45 | NUR ---
EKG COMPLETED D/T PT HEART RATE IN 50S. SB ON EKG. DROPPED CARDIZEM GTT TO 2.5.
--- NOTE | 2020-08-30 19:50 | NUR ---
SPOKE WITH DR LEWIS, NEW ORDER REC'D TO LEAVE CARDIZEM GTT AT 2.5, ADMIN 60MG PO CARDIZEM NOW AND TURN OFF GTT IN 2 HOURS.
[2020-08-30] MEDS ORDERED: COLACE100 MG PO (22:30)
[2020-08-31 00:01] VITALS: BP 108/62
--- NOTE | 2020-08-31 00:23 | NUR ---
RECIEVED REPORT FROM ER. ARRIVED TO FLOOR ON STRETCHER. ALERT AND ORIENTED X4. UP AD MYKE TO B/R. PT STATES HIS HR IS USSUALLY IN THE 50'S AND SOMETIMES IN 40'S. HR AT 44 AT THIS TIME. ASYMPTOMATIC. ASSESSMENT COMPLETED.
[2020-08-31 04:30] VITALS: BP 102/53
[2020-08-31 08:10] VITALS: BP 105/62
[2020-08-31 12:00] VITALS: BP 116/56
--- NOTE | 2020-08-31 14:20 | NUR ---
DISCHARGE INSTRUCTIONS PROVIDED TO PATIENT. PATIENT VERBALIZED UNDERSTANDING. DISCHARGED VIA WHEELCHAIR TO VEHICLE WITH .
--- NOTE | 2020-09-01 08:06 | CN ---
PATIENT NAME:MEHUL FRAIRE SR MEDICAL RECORD: [id number] : 55 LOCATION:D. D.2119 ADMIT DATE: 08/30/20 ACCOUNT: [id number] CONSULTING PHYSICIAN: LORY LEWIS MD REFERRING PHYSICIAN: ANDREW DESOUZA MD DATE OF CONSULTATION: 08/31/2020 HISTORY OF PRESENT ILLNESS: A 64-year-old gentleman with history of coronary artery disease, managed medically, has a history of hypertension, diabetes mellitus, admitted with history of atrial fibrillation. This is his fourth episode since June, tried on propafenone as well as currently sotalol. He is having problems with bradyarrhythmias. At this point, I discussed the options. Currently, cardiac enzymes are negative, has returned to sinus rhythm. PAST MEDICAL HISTORY: Includes; 1. History of hypertension. 2. Hyperlipidemia. 3. Diabetes mellitus. 4. Atrial fibrillation as described above. 5. Cardiomyopathy, improved on therapy. ALLERGIES: MORPHINE, HYDROCODONE, ERYTHROMYCIN. MEDICATIONS: Typically include Zyrtec 10 mg p.o. every day, albuterol p.r.n., Xarelto 20 every day, losartan 25 every day, Aldactone 25 every day, sotalol 120 p.o. b.i.d., amlodipine 5 at bedtime, Lyrica 150 t.i.d., Lasix 20 every day, potassium 20 mEq every day, Glucotrol 5 b.i.d., metformin 1 gram b.i.d. SOCIAL HISTORY: Nonsmoker, nondrinker, does try to walk on a regular basis. Easily takes care of all his ADLs. REVIEW OF SYSTEMS: The patient reports easy bruising but reports no swollen glands. The patient reports no fever, no night sweats, no significant weight gain, no significant weight loss. No significant exercise tolerance. The patient reports no dry eyes, no irritation, no vision change. Patient reports no difficulty hearing and no ear pain. Patient reports no frequent nose bleeds or nose and sinus problems. Patient reports on arm pain on exertion. No shortness of breath while lying down. No history of heart murmur. Patient reports no cough, no wheezing or coughing up blood. Patient reports no abdominal pain, no vomiting. Normal appetite. No diarrhea and not vomiting blood. No nausea and no constipation. Patient reports no incontinence. No difficulty urinating. No hematuria. No increased frequency. Patient reports no muscle aches. No weakness, no arthralgias, no back pain. No swelling of the extremities. Patient reports no abnormal mole, no jaundice, no rashes. Reports no loss of consciousness. No weakness and no numbness. No seizures, dizziness, or headaches. The patient reports no depression, no sleep disturbance, feeling safe in a relationship and no alcohol abuse. Patient reports on fatigue. Reports no runny nose or sinus pressure. No itching, no hives, and no frequent sneezing. PHYSICAL EXAMINATION: GENERAL: Pleasant. No acute distress, appears stated age. VITAL SIGNS: Blood pressure 105/62, pulse 56 and regular. HEENT: Normocephalic, atraumatic. NECK: No JVD or bruit. CONSULT REPORT [id number] MEHUL FRAIRE SR HEART: Regular. A II/ systolic ejection murmur. No gallops noted. LUNGS: Fairly good air excursion. ABDOMEN: Soft, nontender. EXTREMITIES: Pulses 2+ and equal. No edema. NEUROLOGIC: Grossly intact. IMPRESSION AND PLAN: Recurrent atrial fibrillation. Discussed options at this point. Given multiple recurrent episodes, I think referral for possible ablation with electrophysiology in [place] is indicated at this point. We will get this initiated. Okay to discharge from our standpoint. TRANSINT:[id number] Voice Confirmation ID: [id number] DOCUMENT ID: [id number] LORY LEWIS MD at 0806 CC: [id number] DICTATION DATE: 08/31/20 08 PROTOTYPE FABRICATOR: 08/31/20 1250 DIS IN 08/31/20 [facility] [address] [place] [address]
== END 2020-08-31 14:20 | disposition home or self-care (01) | DRG 310 ==
LOC: D.ER 14:10 → D.M2 18:00
PROVIDERS: Family Medicine; ADMIT Emergency Medicine; ATTEND Emergency Medicine
DX: I48.20 Chronic atrial fibrillation, unspecified (principal); E11.9 Type 2 diabetes mellitus without complications; I11.0 Hypertensive heart disease with heart failure; I50.9 Heart failure, unspecified; I25.10 Atherosclerotic heart disease of native coronary artery without angina pectoris; G89.29 Other chronic pain; M54.9 Dorsalgia, unspecified; K21.9 Gastro-esophageal reflux disease without esophagitis; J44.9 Chronic obstructive pulmonary disease, unspecified; Z86.73 Personal history of transient ischemic attack (TIA), and cerebral infarction without residual deficits